=== PATIENT | female | born 1950 | race Caucasian/White ===

== ENCOUNTER 2017-02-26 21:15 | Inpatient (IN) | payer OTHER ==
[~2017-02-26] VITALS: Ht 165.1 cm; Wt 67.1 kg
[~2017-02-26 21:15] MED LIST: ADULT LOW DOSE81 MG PO; ALBUTEROL INHAL17 GM IH; ANTIVERT25 MG PO; APAP/CODEINE ELI5 M1 PO; APAP500 PO; ASA81BEC PO; ASPIRIN325 PO; CARVEDILOL3.125 MG PO; CHERACOL COUGH120 ML PO; COLACE100 MG PO; COREG CR20 MG PO; COREG PO; DICLOFENAC SOD50 M1 PO; DOXYCYCLINE 10100 MG PO; ERYTHROMYCIN E3.5 G1 OP; HYDROCODON-ACE1 EAC7 PO; HYDROCODONE-AP1 EAC6 PO; KEFLEX500 MG; KEFLEX500 MG PO; LANOXIN 0.120.125 M1 PG; LEVAQUIN 500 M500 M2 PO; LIPITOR20 MG PO; LISINOPRIL2.5 MG PO; MULTIVITAMINS PO; NORCO 5-325 TA1 EACH PO; NOVOLIN N100 UNIT/3 SUBQ; OMEPRAZOLE; ONDANSETRON HCL4 M2 PO; PROMETHAZINE-C120 ML PO; PROTONIX40 M2 PO; SILVADENE20 GM; SIMVASTATIN20 MG PO; SIMVASTATIN40 MG PO; ULTRAM 50MG TAB50 MG PO; VANCOMYCIN1 GM/150 M IV; ZANAFLEX4 M1 PO; ZOCOR PO; ZOFRAN ODT4 M1 PO; ZOFRAN ODT4 MG PO; ZOFRAN ODT4 MG SUBLING; ZOFRAN4 MG PO; ZOLOFT100 MG PO; ZPAK PO
[2017-02-26 21:16] VITALS: BP 178/91
[2017-02-26 21:29] LABS: ABSOLUTE NEUTROPHILS 4.4 thou/uL (1.4-8.2); EOSINOPHILS 4.9 % (0.0-3.0); HEMATOCRIT 34.8 % (37.0-47.0); HEMOGLOBIN 11.5 gm/dL (12.0-15.0); LYMPHOCYTES 28.5 % (24.0-44.0); MCH 29.6 pg (26.0-34.0); MCHC 33.1 g/dL (28.0-37.0); MCV 89.5 fL (80.0-100.0); MONOCYTES 8.5 % (1.0-8.0); PLATELET COUNT 338 thou/uL (150-400); POLYS 57.1 % (36.0-66.0); RBC 3.89 mil/uL (4.20-5.00); RDW 15.3 % (10.5-14.5); WBC 7.8 thou/uL (4.0-11.0)
[2017-02-26 21:30] LABS: MANUAL DIFF NO
[2017-02-26 21:37] LABS: ANION GAP 6 mmol/L (7-16); BUN 25 mg/dL (7-18); CHLORIDE 104 mmol/L (98-107); CO2 30 mmol/L (21-32); CREATININE 1.2 mg/dL (0.6-1.0); GLUCOSE 48 mg/dL (74-106); POTASSIUM 4.4 mmol/L (3.5-5.1); SODIUM 140 mmol/L (136-145)
[2017-02-26 21:41] LABS: ALKALINE PHOSPHATASE 73 U/L (46-116); DIRECT BILIRUBIN < 0.1 mg/dL (<0.1-0.3); SGOT 18 U/L (15-37); SGPT 18 U/L (30-65); TOTAL BILIRUBIN 0.2 mg/dL (<0.1-1.0); TOTAL PROTEIN 8.1 g/dL (6.4-8.2)
[2017-02-26] MEDS ORDERED: TRINATE TABLET1 TAB PO (21:43)
[2017-02-26 22:14] LABS: URINE BILIRUBIN NEGATIVE (Negative); URINE BLOOD TRACE (Negative); URINE COLOR YELLOW; URINE GLUCOSE-RANDOM* 2+ (Negative); URINE KETONES NEGATIVE (Negative); URINE NITRITE POSITIVE (Negative); URINE PROTEIN (DIPSTICK) 1+ (Negative); URINE UROBILINOGEN 0.2 E.U./dl (0.2-1.0)
[2017-02-26 22:21] LABS: SQUAMOUS 0-3 Few /LPF (0-3); URINE WBC >25 Many /HPF (0-5)
[2017-02-26 22:22] LABS: BACTERIA >30 Many /HPF (None Seen); CRYSTALS None Seen /LPF (None Seen); HYALINE CASTS 0-3 Few /LPF (None Seen); URINE RBC 0-2 Rare /HPF (0-2)
[2017-02-26 23:02] VITALS: BP 146/96
[2017-02-27 00:23] VITALS: BP 177/107
[2017-02-27 02:05] VITALS: BP 159/77
[2017-02-27 04:03] VITALS: BP 174/79
[2017-02-27 08:00] VITALS: BP 147/81
[2017-02-27 16:00] VITALS: BP 169/98
[2017-02-27 19:11] VITALS: BP 150/78
[2017-02-28 03:39] VITALS: BP 126/79
[2017-02-28] MEDS ORDERED: ADULT LOW DOSE81 MG PO (06:46)
[2017-02-28] MEDS ORDERED: HUMALOG100 UNIT/1 SUBQ (06:48)
[2017-02-28] MEDS ORDERED: CEFDINIR300 MG PO (06:51)
[2017-02-28 08:00] VITALS: BP 125/74
[2017-02-28 09:00] VITALS: BP 125/74
[2017-02-28 11:48] VITALS: BP 125/74
== END 2017-02-28 10:20 | disposition home or self-care (01) | DRG 690 ==
LOC: ER 21:15 → EROBS 22:20 → 3N 22:20
PROVIDERS: Emergency Medicine
DX: N39.0 Urinary tract infection, site not specified (principal); E78.00 Pure hypercholesterolemia, unspecified; I50.9 Heart failure, unspecified; I11.0 Hypertensive heart disease with heart failure; Z96.642 Presence of left artificial hip joint; E11.649 Type 2 diabetes mellitus with hypoglycemia without coma; K21.9 Gastro-esophageal reflux disease without esophagitis; F32.9 Major depressive disorder, single episode, unspecified; J45.909 Unspecified asthma, uncomplicated; Z88.0 Allergy status to penicillin; Z95.1 Presence of aortocoronary bypass graft; Z87.81 Personal history of (healed) traumatic fracture; I25.2 Old myocardial infarction; Z88.8 Allergy status to other drugs, medicaments and biological substances
CPT/HCPCS: 10096

== ENCOUNTER → 2017-04-28 | Outpatient (CLI) | payer OTHER ==
[~2017-04-28] MED LIST changes: +CEFDINIR300 MG PO; +HUMALOG100 UNIT/1 SUBQ; +TRINATE TABLET1 TAB PO
== END ==
LOC: HYPER 04-23 06:47
DX: E11.621 Type 2 diabetes mellitus with foot ulcer (principal); L97.521 Non-pressure chronic ulcer of other part of left foot limited to breakdown of skin; I25.810 Atherosclerosis of coronary artery bypass graft(s) without angina pectoris; I25.2 Old myocardial infarction; K21.9 Gastro-esophageal reflux disease without esophagitis; Z98.49 Cataract extraction status, unspecified eye

== ENCOUNTER → 2017-05-12 | Outpatient (CLI) | payer OTHER | LOC: HYPER 07:00 | DX: E11.621 Type 2 diabetes mellitus with foot ulcer (principal); L97.521 Non-pressure chronic ulcer of other part of left foot limited to breakdown of skin; I25.810 Atherosclerosis of coronary artery bypass graft(s) without angina pectoris; I25.2 Old myocardial infarction; K21.9 Gastro-esophageal reflux disease without esophagitis ==

== ENCOUNTER 2017-05-21 16:11 | Inpatient (IN) | payer OTHER ==
[~2017-05-21] VITALS: Ht 165.1 cm; Wt 59.0 kg
--- NOTE | ~2017-05-21 | EKG ---
[address] [address] ELECTROCARDIOGRAM REPORT Name: FERGUSONAFSHIN Room #: 404-P ADM IN M.R.#: [id number] Admission: 05/21/17 Attend Phys: Cameron Duncan MD Discharge: Date of : 46 Report #: [id number] THIS REPORT FOR: //name// [facility] ED Test Date: 2017-05-21 Test Time: 18:14:53 Pat Name: AFSHIN FERGUSON Department: Room: 404 Gender: F Senior Software Project Manager: [facility] : 1950 Requested By: Erika Broussard Order Number: [id number] MD: Kaiser Contreras Measurements Intervals [place] Rate: 79 P: 63 [place]: 211 QRS: 30 QRSD: 90 T: 88 QT: 405 QTc: 465 Interpretive Statements Sinus rhythm Low voltage, precordial leads Anteroseptal infarct, old Compared to ECG 01/12/2016 11:49:34 No significant changes Electronically Signed On 05-22-2017 7:40:57 CDT by Kaiser Contreras [email or web address] <ELECTRONICALLY SIGNED> By: Kaiser Contrreas MD, [facility] 05/22/17 0740 1814 181 Kaiser Contreras MD, [facility] /EPI
--- NOTE | ~2017-05-21 | O ---
[facility] [place] [address] OPERATIVE REPORT Name: AFSHIN FERGUSON ALEKSANDAR Room #: 404-P ADM IN M.R.#: [id number] Admission: 05/21/17 Attend Phys: Cameron Duncan MD Discharge: Date of : 48 Report #: [id number] THIS REPORT FOR: //name// CC: Cameron Duncan DATE OF SERVICE: 05/23/2017 PREOPERATIVE DIAGNOSIS: Displaced unstable right femoral neck fracture. POSTOPERATIVE DIAGNOSIS: Displaced unstable right femoral neck fracture. PROCEDURE: Repair of right femoral neck fracture with total hip arthroplasty replacement. SURGEON: Isaac Constantino MD INDICATIONS: This 66-year-old female fell injuring the right hip. X-rays confirmed a displaced unstable femoral neck fracture. She also has some preexisting degenerative arthritis. She already underwent a left total hip replacement. We discussed repair on the right side with either hemiarthroplasty or total hip replacement. Given her history and current findings, I think a total hip replacement is probably the best option for her. She and her family understand and agree. DESCRIPTION OF PROCEDURE: The patient was taken to the operating room where she was placed under general anesthesia. Prophylactic intravenous antibiotics were administered. She was turned to the left lateral decubitus position. The right hip, thigh and leg were meticulously prepped and draped. A slightly curving posterolateral skin incision was made centered over the greater trochanter. This was carried through subcutaneous tissues, fascia and gluteus to expose the posterior aspect of the hip joint. The short external rotators and capsule were taken down and preserved and tagged with several #1 Tevdek sutures. The hip was noted be fractured and unstable. A femoral neck osteotomy was performed. The femoral head was removed. The canal was opened with reamers and hand broaches. The [employer]hew size 10 press-fit stem seemed to fit quite nicely. Broaches were advanced to this level. Attention was then directed to the acetabulum. Good exposure was established. The acetabulum was sequentially reamed up to a size 46 mm reamer. This seemed to be tight and secure. A 46-mm metal acetabular shell was then inserted, placing this in alignment with her true acetabulum, which placed this in about 45 degrees off of vertical and about 20 degrees of anteversion. It was impacted into position and seated nicely, 1 cortical screw rather cancellous screw was placed through the apex of the shell engaging good periacetabular bone with solid additional fixation. A 28-mm polyethylene liner was then snapped into place with the 20-degree elevation at about the 10 o'clock posterior position. It seated nicely and appeared to be secure. A size 10 lateral offset femoral stem was then impacted into position, [address] [address] OPERATIVE REPORT Name: AFSHIN FERGUSON Room #: 404-P [facility] IN M.R.#: [id number] Admission: 05/21/17 Attend Phys: Cameron Duncan MD Discharge: Date of : 46 Report #: [id number] placing this in about 15 degrees of anteversion, it seated nicely and appeared to be secure. A trial reduction was performed and the hip was best suited for a +8 mm neck length. This resulted in satisfactory alignment, range of motion, stability and leg length. A 28-mm head with a +8 mm neck length was then applied. This was impacted onto the Osorio taper neck. The hip was once again reduced. Alignment, range of motion, stability and leg length were assessed and felt to be satisfactory. The short external rotators and capsule were then repaired back to greater trochanter using the #1 Tevdek sutures, passed through drill holes in the greater trochanter. A single Hemovac was left in the wound exiting through a separate stab incision. The fascia was closed with multiple #1 Vicryl sutures. The subcutaneous tissues were closed with 0 Monocryl. The skin was closed with skin paris. A sterile dressing was applied. The patient was awakened and returned to the recovery room in good condition. <ELECTRONICALLY SIGNED> By: Isaac Constantnio MD 05/26/17 1212 1618 1652 Isaac Constantino MD /nt
--- NOTE | ~2017-05-21 | HC ---
[facility] [place] [address] CONSULTATION Name: FERGUSONAFSHIN Room #: 404-P ADM IN M.R.#: [id number] Admission: 05/21/17 Attend Phys: Cameron Duncan MD Discharge: Date of : 48 Report #: [id number] THIS REPORT FOR: //name// CC: Cameron Duncan DATE OF SERVICE: 05/22/2017 CHIEF COMPLAINT: Right femoral neck fracture. HISTORY OF PRESENT ILLNESS: This frail but still active 66-year-old female presents with a new right hip injury. She fell resulting in a femoral neck fracture. She has no other apparent injuries. She did have a previous left hip fracture, which was treated with total hip replacement several years ago. She has done well on that side. She hopes for a similar procedure on the right. PHYSICAL EXAMINATION:: GENERAL: At the time of my evaluation, she is alert and oriented. MUSCULOSKELETAL: She complains of moderate hip discomfort with any movement, but seems reasonably comfortable when still and at rest. The right lower extremity reveals no obvious bruising or swelling about the hip, but there is tenderness to palpation. She has no significant shortening nor rotational abnormality. Distal neurologic and vascular status appeared to be intact. IMAGING DATA: X-rays of the pelvis show good position of her old total hip replacement on the left side, which appears to be stable and well seated. There now is a right femoral neck fracture with slight varus malalignment and angulation. There is moderate degenerative change at the hip as well. IMPRESSION: Right femoral neck fracture, which appears to be unstable. I have discussed this with the patient, reviewing treatment options. I think surgical repair is most appropriate, and she would like to press ahead whenever scheduling will allow. We discussed either hemiarthroplasty or total hip replacement. She had a similar discussion on the opposite side. She does have some hip arthritis and is otherwise fairly active and independent. Given this, I think a total hip replacement is probably the best approach for this patient. Pending scheduling, we may be able to proceed tomorrow with this surgical repair. <ELECTRONICALLY SIGNED> By: Isaac Constantino MD 05/22/17 1839 0750 0828 Isaac Constantino MD /nt
[2017-05-21 16:12] VITALS: BP 120/88
[2017-05-21 16:52] LABS: ABSOLUTE NEUTROPHILS 3.5 thou/uL (1.4-8.2); BASOPHILS 0.8 % (0.0-2.0); EOSINOPHILS 3.3 % (0.0-3.0); HEMATOCRIT 33.5 % (37.0-47.0); HEMOGLOBIN 11.1 gm/dL (12.0-15.0); LYMPHOCYTES 31.6 % (24.0-44.0); MCHC 33.2 g/dL (28.0-37.0); MCV 90.6 fL (80.0-100.0); MONOCYTES 7.7 % (1.0-8.0); PLATELET COUNT 237 thou/uL (150-400); POLYS 56.6 % (36.0-66.0); RDW 14.5 % (10.5-14.5); WBC 6.2 thou/uL (4.0-11.0)
[2017-05-21 16:53] LABS: MANUAL DIFF NO
[2017-05-21 16:58] LABS: CALCIUM 8.5 mg/dL (8.5-10.1)
[2017-05-21 17:04] LABS: ALBUMIN 3.5 g/dL (3.4-5.0); TOTAL BILIRUBIN 0.3 mg/dL (<0.1-1.0); TOTAL PROTEIN 7.2 g/dL (6.4-8.2)
[2017-05-21] MEDS ORDERED: NOVOLIN N100 UNIT/3 SUBQ (17:36)
[2017-05-21 17:56] VITALS: BP 189/91
[2017-05-21 18:21] VITALS: BP 172/76
[2017-05-21 23:17] VITALS: BP 139/57
[2017-05-22 03:21] VITALS: BP 140/76
[2017-05-22 08:07] VITALS: BP 125/67
[2017-05-22 10:43] VITALS: BP 137/66
[2017-05-22 20:00] VITALS: BP 135/72
[2017-05-23] VITALS (9 sets, daily range): BP systolic 113–157; BP diastolic 48–89
[2017-05-24 04:28] VITALS: BP 119/57
[2017-05-24 04:48] LABS: HEMATOCRIT 25.5 % (37.0-47.0); MCH 30.1 pg (26.0-34.0); MCHC 32.8 g/dL (28.0-37.0); MCV 91.9 fL (80.0-100.0); RBC 2.77 mil/uL (4.20-5.00); RDW 14.4 % (10.5-14.5); WBC 7.2 thou/uL (4.0-11.0)
[2017-05-24 04:50] LABS: HEMOGLOBIN 8.4 gm/dL (12.0-15.0)
[2017-05-24 07:59] VITALS: BP 140/67
[2017-05-24 16:29] VITALS: BP 98/49
[2017-05-24 20:00] VITALS: BP 110/61
[2017-05-25 03:38] LABS: HEMATOCRIT 23.8 % (37.0-47.0); HEMOGLOBIN 7.9 gm/dL (12.0-15.0); MCH 30.4 pg (26.0-34.0); MCHC 33.3 g/dL (28.0-37.0); MCV 91.5 fL (80.0-100.0); RBC 2.6 mil/uL (4.20-5.00); RDW 14.4 % (10.5-14.5); WBC 7.7 thou/uL (4.0-11.0)
[2017-05-25 04:00] VITALS: BP 151/77
[2017-05-25 08:00] VITALS: BP 156/73
[2017-05-25 20:59] VITALS: BP 103/48
[2017-05-26 04:46] VITALS: BP 150/76
[2017-05-26 06:05] LABS: HEMATOCRIT 25.2 % (37.0-47.0); HEMOGLOBIN 8.3 gm/dL (12.0-15.0); MCH 30.3 pg (26.0-34.0); MCHC 33.1 g/dL (28.0-37.0); MCV 91.5 fL (80.0-100.0); RBC 2.75 mil/uL (4.20-5.00); RDW 14.6 % (10.5-14.5)
[2017-05-26 08:48] VITALS: BP 154/66
[2017-05-26] MEDS ORDERED: PERCOCET 10-321 EACH PO (12:34)
[2017-05-26 13:27] VITALS: BP 154/66
== END 2017-05-26 17:06 | disposition home health service (06) | DRG 470 ==
LOC: ER 16:11 → EROBS 17:37 → 4N 17:37 → ENTRNSPT 05-26 14:27 → EDTRNSPTSTS 05-26 14:30 → 4N 05-26 17:06
PROVIDERS: Orthopaedic Surgery; Physician Assistant
PROC: 0SR904A Replacement of Right Hip Joint with Ceramic on Polyethylene Synthetic Substitute, Uncemented, Open Approach (ICD-10-PCS; principal; 2017-05-23)
DX: S72.001A Fracture of unspecified part of neck of right femur, initial encounter for closed fracture (principal); I42.9 Cardiomyopathy, unspecified; E78.00 Pure hypercholesterolemia, unspecified; E11.9 Type 2 diabetes mellitus without complications; I50.9 Heart failure, unspecified; J45.909 Unspecified asthma, uncomplicated; F32.9 Major depressive disorder, single episode, unspecified; K21.9 Gastro-esophageal reflux disease without esophagitis; W18.39XA Other fall on same level, initial encounter; I11.0 Hypertensive heart disease with heart failure; Z96.642 Presence of left artificial hip joint; I25.2 Old myocardial infarction; Z95.1 Presence of aortocoronary bypass graft; Z88.0 Allergy status to penicillin; Z88.8 Allergy status to other drugs, medicaments and biological substances; Z79.82 Long term (current) use of aspirin; Z79.4 Long term (current) use of insulin; Y93.89 Activity, other specified; Y92.89 Other specified places as the place of occurrence of the external cause; Y99.8 Other external cause status
CPT/HCPCS: 10790; 50010; 50101; 50382; 50414; 50455; 51412; 51771; 53000; 53367; 56521; 56525; 56527; 62110; 62900; 70005

== ENCOUNTER → 2017-06-03 | Outpatient (CLI) | payer OTHER ==
[~2017-06-03] MED LIST changes: +PERCOCET 10-321 EACH PO
== END ==
LOC: ULTRA 16:05
DX: M79.89 Other specified soft tissue disorders (principal)

== ENCOUNTER 2017-07-15 11:50 | Inpatient (IN) | payer OTHER ==
[~2017-07-15] VITALS: Ht 165.1 cm; Wt 64.1 kg
--- NOTE | ~2017-07-15 | HC ---
[facility] [place] [address] CONSULTATION Name: MARTYAFSHIN ANN Room #: 432-P [facility] IN M.R.#: [id number] Admission: 07/15/17 Attend Phys: Cameron Duncan MD Discharge: 07/18/17 Date of : 48 Report #: [id number] THIS REPORT FOR: //name// CC: Cameron Duncan DATE OF SERVICE: 07/16/2017 CHIEF COMPLAINT: Diabetic foot wound. HISTORY OF PRESENT ILLNESS: This is a 67-year-old female patient with a history of diabetes mellitus who was admitted to the hospital with difficulty swallowing and generalized weakness. She was also noted to have some drainage from an ulceration involving her left foot. I have been asked to see her with regard to wound care. The patient states that the area has opened up and is draining. She denies any pain. PAST MEDICAL HISTORY: Positive for diabetes mellitus, recent hip fracture, history of peripheral neuropathy, history of dysphagia, prior history of hypertension as well as previous myocardial infarction. ALLERGIES: To PENICILLIN, COMPAZINE, and TIZANIDINE. MEDICATIONS: Include simvastatin, insulin, prednisone, omeprazole, pantoprazole, sertraline, and carvedilol. SOCIAL HISTORY: Negative for alcohol or tobacco use. FAMILY HISTORY: Noncontributory. REVIEW OF SYSTEMS: CONSTITUTIONAL: The patient denies fever, chills, or weight loss. NEUROLOGIC: The patient denies focal weakness, numbness, or tingling. EYES: The patient denies visual change, redness or drainage. ENT: The patient denies earache, nasal drainage, or sore throat. CARDIOVASCULAR: The patient denies chest pain, palpitations, or diaphoresis. PULMONARY: The patient denies cough or shortness of breath. GASTROINTESTINAL: The patient does complain of difficulty and painful swallowing. Denies nausea, vomiting, diarrhea, or abdominal pain. ORTHOPEDIC: The patient does note the ulceration on her foot, diminished perception of light touch. Other systems and a 12-point review of systems are negative. PHYSICAL EXAMINATION: VITAL SIGNS: At this time include temperature 37.2, pulse 85, respiratory rate 16, and blood pressure 166/75. [address] [address] CONSULTATION Name: AFSHIN FERGUSON ALEKSANDAR Room #: 432-P [facility] IN M.R.#: [id number] Admission: 07/15/17 Attend Phys: Cameron Duncan MD Discharge: 07/18/17 Date of : 48 Report #: [id number] GENERAL: This is a chronically ill-appearing female, patient appears to be in no distress. HEAD: Normocephalic. NOSE AND THROAT: Clear. NECK: Supple. LUNGS: Clear. HEART: Regular rhythm. ABDOMEN: Soft. Bowel sounds present. EXTREMITIES: Examination of the lower extremities demonstrate easily palpable distal pulses including dorsalis pedis and posterior tibialis pulses. Examination of the feet demonstrates some callusing present. She has also an ulceration in the medial aspect of her left first MTP region on the plantar surface. There is some moderate erythema, this probes very close bone, although no bony structures were exposed to visual inspection. CLINICAL IMPRESSION: 1. 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 2. Diabetes mellitus. 3. Peripheral neuropathy. 4. Esophageal stricture, now status post dilation. RECOMMENDATIONS: We will check a sed rate, CRP as well as an MRI. Her x-ray of the foot demonstrates no evidence of acute abnormalities. Cultures are pending. She remains on intravenous vancomycin, which I think is appropriate. I appreciate being asked to see her in consultation. <ELECTRONICALLY SIGNED> By: Pepe Almazan MD 07/18/17 1526 1811 0915 Pepe Almazan MD /nt
--- NOTE | ~2017-07-15 | CNG ---
[facility] [place] [address] CYTO-NONGYN REPORT PROCEDURE Name: JENNIFER FERGUSON Room #: 432-P ADM IN M.R.#: [id number] Admission: 07/15/17 Date of : 46 Discharge: Report #: [id number] Path Case #: [id number] CYTOPATHOLOGY REPORT COLLECTION DATE: 07/16/2017 RECEIVED DATE: 07/16/2017 SUBMITTING PHYS: Dr. Cameron Duncan OTHER PHYS: Dr. Mirna Rodrigues CLINICAL HISTORY: Generalized weakness, anorexia, dysphagia, leukocytes; See also [id number]. SPECIMEN(S) RECEIVED: A.Esophageal brushing * * * * * * * * * * * * FINAL DIAGNOSIS: A. Esophageal brushing: - No malignant cells identified. Paucicellular specimen with a few squamous epithelial cells and fungal elements consistent with Ariadne species. PATHOLOGIST: Jony Walters M.D. REPORT ELECTRONICALLY SIGNED BY: Jony Walters M.D. DATE/TIME: 07/17/2017 11:23 * * * * * * * * * * * * GROSS PATHOLOGY: A. Esophageal brushing: The specimen is labeled "Jennifer Ferguson" and consists of a brush tip in fixative. One ThinPrep slide was prepared. (lg07.16.2017) MARINE DIESEL MECHANIC(S): Xochilt Cristina, JUANA(ASCP), IAC INITIAL CPT CODE(S): A; 49943 Professional services performed by [facility] at [facility] [address], [place] [address] Technical services performed by [facility] at [address] [place] [address]., [address], [place] [address]. [facility] [address] [place] [address], [address] [place], [place] [address] [place] [address] [place] [address] CYTO-NONGYN REPORT PROCEDURE Name: JENNIFER FERGUSON ALEKSANDAR Room #: 432-P ADM IN M.R.#: [id number] Admission: 07/15/17 Date of : 48 Discharge: Report #: [id number] Path Case #: [id number] PHONE: [phone] DIRECTOR: Robert Bustos M.D. * * * END OF REPORT * * *
--- NOTE | ~2017-07-15 | P ---
[facility] [place] [address] PROCEDURE REPORT Name: AFSHIN FERGUSON ALEKSANDAR Room #: 432-P ADM IN M.R.#: [id number] Admission: 07/15/17 Attend Phys: Cameron Duncan MD Discharge: Date of : 48 Report #: [id number] THIS REPORT FOR: //name// CC: Cameron Duncan MD DATE OF SERVICE: 07/16/2017 ESOPHAGOGASTRODUODENOSCOPY WITH BIOPSIES AND BRUSHINGS AND ESOPHAGEAL DILATATION Patient of Dr. Cameron Duncan. INDICATION FOR PROCEDURE: This patient has had dysphagia. She had significant weight loss in the last 2 months because of this dysphagia. The etiology is unclear. She also has some pain in her epigastrium that is not explained. Informed consent for this procedure was obtained prior to the administration of any medication. The risks of the procedure, which include bleeding, perforation, infection, complications of sedation and the possibility I could miss something have been explained to the patient. She has indicated her consent by signing. Propofol was slowly titrated before and during this procedure for patient comfort by the anesthesia service. The Efficient Cloudn upper videoscope was introduced through the upper esophageal sphincter and advanced under direct visualization to the descending duodenum. Findings are noted on withdrawal of the scope. Second portion of the duodenum and the duodenal bulb appear normal. Pylorus, normal mucosa. Antrum, erythematous mucosa suggesting a hemorrhagic gastritis. Biopsies were obtained x 2 for histopathology. Body, normal mucosa. Cardia and fundus, normal mucosa. Retroflex view did not reveal any abnormalities. The scope was withdrawn into the esophagus. Much of the esophagus both distally and proximally was coated with a white exudative material that is easily wiped off. I think this is retained food in the esophagus, possibly from an esophageal dysmotility problem. In some areas, it looks like Ariadne and so we did brush it for KEITH prep, but it is not an adherent plaque, it is a removable plaque. The esophageal mucosa that I visualized appeared normal. The scope was advanced down into the stomach again and a guidewire was advanced through the scope. Then, #48 and 51-Irish Savary dilators were passed over the guidewire without difficulty. The dilators and the guidewire were removed and the Efficient Cloudn upper videoscope was reintroduced through the upper esophageal sphincter and advanced under direct visualization again down into the body of the stomach. Retroflex view did not reveal any abnormalities of the cardia. The scope was withdrawn into the esophagus. The Z-line was appropriately located at the top of the gastric folds and it appears normal. The esophageal mucosa that is visualized appears normal; however, a large amount of retained white adherent, probably food is stuck to much of the esophageal wall. The scope was then withdrawn. [facility] [address] [place] [address] PROCEDURE REPORT Name: AFSHIN FERGUSON Room #: 432-P [facility] IN M.R.#: [id number] Admission: 07/15/17 Attend Phys: Cameron Duncan MD Discharge: Date of : 46 Report #: [id number] The patient went to the recovery area in stable condition. She tolerated the procedure well. IMPRESSION: 1. Probable retained food in the esophagus coating the becerra of the esophagus, KEITH prep obtained nonetheless, and no significant narrowing or stricturing of the esophagus seen. 2. Hemorrhagic gastritis of the antrum. 3. Successful passage of a #48 and 51 Irish Savary dilators over wire in an attempt to alleviate her dysphagia. My recommendations are as follows: Would resume her usual meds. We will await the KEITH prep brushing. We will await the biopsies. It is possible if her dysphagia persists after this dilatation, then she will need to have an esophageal motility study done as I suspect she probably has an esophageal dysmotility problem. Thank you very much once again for allowing me to participate in her care, Dr. Duncan. <ELECTRONICALLY SIGNED> By: Mirna Rodrigues DO 07/17/17 2309 1400 0714 Mirna Rodrigues DO /nt
--- NOTE | ~2017-07-15 | EKG ---
[address] [address] ELECTROCARDIOGRAM REPORT Name: AFSHIN FERGUSON Room #: 432-P ADM IN M.R.#: [id number] Admission: 07/15/17 Attend Phys: Cameron Duncan MD Discharge: Date of : 46 Report #: [id number] THIS REPORT FOR: //name// [facility] ED Test Date: 2017-07-15 Test Time: 12:44:48 Pat Name: AFSHIN FERGUSON Department: Room: [facility] Gender: F Contract Consultant: JACOBO : 1950 Requested By: Sera Pérez Order Number: [id number] MD: John Monaco Measurements Intervals [place] Rate: 85 P: 55 MS: 179 QRS: 22 QRSD: 88 T: 93 QT: 374 QTc: 445 Interpretive Statements Sinus rhythm Borderline low voltage, extremity leads Anteroseptal infarct, old Nonspecific T abnormalities, lateral leads Compared to ECG 06/07/2017 18:10:54 T-wave abnormality now present Myocardial infarct finding still present Electronically Signed On 07-15-2017 20:13:50 RETAIL PHARMACY MANAGER by John Monaco [email or web address] <ELECTRONICALLY SIGNED> By: John Monaco MD 07/15/172012 1244 1244 John Monaco MD /EPI
--- NOTE | ~2017-07-15 | S ---
[facility] [place] [address] SURGICAL PATH RPT PROCEDURE Name: FERGUSONJENNIFER Room #: 432-P ADM IN M.R.#: [id number] Admission: 07/15/17 Date of : 46 Discharge: Report #: [id number] Path Case #: [id number] PATHOLOGY REPORT COLLECTION DATE: 07/16/2017 RECEIVED DATE: 07/16/2017 SUBMITTING PHYS: Dr. Mirna Rodrigues OTHER PHYS: Dr. Cameron Duncan SPECIMEN(S) RECEIVED: A.Bx antrum R/O H. pylori * * * * * * * * * * * * FINAL DIAGNOSIS: Gastric mucosa, antrum, endoscopic biopsy: - Mild chronic gastritis. - Negative for intestinal metaplasia or atrophy. - Negative for Helicobacter pylori. COMMENT: Well controlled Helicobacter pylori immunohistochemical stain performed on block A1 - negative. (IUV:pit; 07/17/2017) PATHOLOGIST: Karma Lala M.D. REPORT ELECTRONICALLY SIGNED BY: Karma Lala M.D. DATE/TIME: 07/17/2017 15:15 * * * * * * * * * * * * GROSS PATHOLOGY: Received in formalin labeled "Jennifer FergusonANAHY antrum," is a segment of frazier soft tissue measuring 0.8 cm in maximum dimension. The specimen is submitted entirely in cassette A1. (TSD; 07/16/2017) CLINICAL HISTORY: Pre-OP DX: Dysphagia, weight loss Post-OP DX: Retained food m esophagus, hemorrhagic gastritis INITIAL CPT CODE(S): A; 86328, 68667 Professional services performed by [facility] at [facility] [address], [place] [address] [facility] [address] [place] [address] SURGICAL PATH RPT PROCEDURE Name: JENNIFER FERGUSON Room #: 432-P ADM IN M.R.#: [id number] Admission: 07/15/17 Date of : 46 Discharge: Report #: [id number] Path Case #: [id number] [facility] at [address] [place] [address], [facility] [address] [place] [address]. [facility] [address] [address] PHONE: [phone] DIRECTOR: Robert Bustos M.D. * * * END OF REPORT * * *
[~2017-07-15 11:50] MED LIST changes: +CARAFATE 1 GM TA1 G1 PO; +XARELTO10 MG PO
[2017-07-15 11:51] VITALS: BP 136/108
[2017-07-15 12:54] LABS: HEMATOCRIT 32.5 % (37.0-47.0); HEMOGLOBIN 10.4 gm/dL (12.0-15.0); MCH 29.8 pg (26.0-34.0); MCHC 32.1 g/dL (28.0-37.0); MCV 92.8 fL (80.0-100.0); PLATELET COUNT 313 thou/uL (150-400); RDW 15.5 % (10.5-14.5); WBC 15.6 thou/uL (4.0-11.0)
[2017-07-15 12:55] LABS: MANUAL DIFF YES
[2017-07-15 13:03] LABS: ANION GAP 6 mmol/L (7-16); BUN 37 mg/dL (7-18); CALCIUM 8.7 mg/dL (8.5-10.1); CHLORIDE 98 mmol/L (98-107); CO2 30 mmol/L (21-32); CREATININE 1.2 mg/dL (0.6-1.0); GLUCOSE 439 mg/dL (74-106); POTASSIUM 5.6 mmol/L (3.5-5.1); SODIUM 134 mmol/L (136-145)
[2017-07-15 13:12] LABS: ALKALINE PHOSPHATASE 98 U/L (46-116); SGOT 11 U/L (15-37); SGPT 13 U/L (30-65); TOTAL BILIRUBIN 0.3 mg/dL (<0.1-1.0); TOTAL PROTEIN 7.3 g/dL (6.4-8.2); TROPONIN-I < 0.04 ng/mL (<0.06)
[2017-07-15 13:29] LABS: ABSOLUTE NEUTROPHILS 15.1 thou/uL (1.4-8.2); PLATELET ESTIMATE NORMAL; TOTAL CELL COUNT 100
[2017-07-15] MEDS ORDERED: PREDNISONE 10 M10 MG PO (13:40)
[2017-07-15] MEDS ORDERED: PRILOSEC 20 MG20 MG PO (13:41)
[2017-07-15 14:09] LABS: URINE BILIRUBIN NEGATIVE (Negative); URINE BLOOD NEGATIVE (Negative); URINE COLOR YELLOW; URINE GLUCOSE-RANDOM* 3+ (Negative); URINE KETONES 1+ (Negative); URINE NITRITE NEGATIVE (Negative); URINE PROTEIN (DIPSTICK) NEGATIVE (Negative)
[2017-07-15 15:28] VITALS: BP 148/55
[2017-07-15 16:17] VITALS: BP 143/63
[2017-07-15 16:46] VITALS: BP 145/79
[2017-07-16 04:00] VITALS: BP 156/68
[2017-07-16 09:00] VITALS: BP 148/74
[2017-07-16 15:29] VITALS: BP 166/75
[2017-07-16 20:32] VITALS: BP 123/60
[2017-07-17 05:21] VITALS: BP 151/82
[2017-07-17 08:47] VITALS: BP 164/79
[2017-07-17 15:45] VITALS: BP 135/82
[2017-07-17 19:34] VITALS: BP 125/59
[2017-07-18 03:33] VITALS: BP 153/76
[2017-07-18 08:08] VITALS: BP 157/80
[2017-07-18 12:53] VITALS: BP 157/80
[2017-07-18] MEDS ORDERED: FLUCONAZOLE 10100 MG PO (13:07)
[2017-07-18] MEDS ORDERED: DOXYCYCLINE 10100 MG PO (13:10)
== END 2017-07-18 14:36 | disposition home health service (06) | DRG 368 ==
LOC: ER 11:50 → 4E 14:51 → EROBS 14:51 → 4E 15:59 → ENTRNSPT 07-18 14:19 → EDTRNSPTSTS 07-18 14:22 → 4E 07-18 14:36
PROVIDERS: Nurse Practitioner Family
PROC: 0D758ZZ Dilation of Esophagus, Via Natural or Artificial Opening Endoscopic (ICD-10-PCS; 2017-07-15)
PROC: 0DB54ZZ Excision of Esophagus, Percutaneous Endoscopic Approach (ICD-10-PCS; 2017-07-15)
PROC: 0DB78ZX Excision of Stomach, Pylorus, Via Natural or Artificial Opening Endoscopic, Diagnostic (ICD-10-PCS; principal; 2017-07-16)
DX: B37.81 Candidal esophagitis (principal); E43 Unspecified severe protein-calorie malnutrition; K29.71 Gastritis, unspecified, with bleeding; N17.9 Acute kidney failure, unspecified; I42.9 Cardiomyopathy, unspecified; E11.621 Type 2 diabetes mellitus with foot ulcer; I50.9 Heart failure, unspecified; J45.909 Unspecified asthma, uncomplicated; F32.9 Major depressive disorder, single episode, unspecified; K21.9 Gastro-esophageal reflux disease without esophagitis; Z96.642 Presence of left artificial hip joint; R13.19 Other dysphagia; E11.22 Type 2 diabetes mellitus with diabetic chronic kidney disease; D72.829 Elevated white blood cell count, unspecified; I12.9 Hypertensive chronic kidney disease with stage 1 through stage 4 chronic kidney disease, or unspecified chronic kidney disease; N18.9 Chronic kidney disease, unspecified; E78.00 Pure hypercholesterolemia, unspecified; E11.65 Type 2 diabetes mellitus with hyperglycemia; E87.5 Hyperkalemia; K22.2 Esophageal obstruction; E11.42 Type 2 diabetes mellitus with diabetic polyneuropathy; L97.529 Non-pressure chronic ulcer of other part of left foot with unspecified severity; D64.9 Anemia, unspecified; E78.5 Hyperlipidemia, unspecified; Z68.23 Body mass index [BMI] 23.0-23.9, adult; Z88.0 Allergy status to penicillin; Z88.8 Allergy status to other drugs, medicaments and biological substances; Z79.4 Long term (current) use of insulin; Z95.1 Presence of aortocoronary bypass graft; I25.2 Old myocardial infarction; Z90.49 Acquired absence of other specified parts of digestive tract
CPT/HCPCS: 10084; 62110; 62900

== ENCOUNTER → 2017-11-18 | Outpatient (CLI) | payer OTHER ==
[~2017-11-18] MED LIST changes: +FLUCONAZOLE 10100 MG PO; +PREDNISONE 10 M10 MG PO; +PRILOSEC 20 MG20 MG PO
== END ==
LOC: HYPER
DX: E11.621 Type 2 diabetes mellitus with foot ulcer (principal); L97.521 Non-pressure chronic ulcer of other part of left foot limited to breakdown of skin; I25.10 Atherosclerotic heart disease of native coronary artery without angina pectoris; I25.2 Old myocardial infarction; K21.9 Gastro-esophageal reflux disease without esophagitis; Z79.4 Long term (current) use of insulin

== ENCOUNTER → 2017-12-02 | Outpatient (CLI) | payer OTHER | LOC: HYPER 08:01 | DX: E11.621 Type 2 diabetes mellitus with foot ulcer (principal); L97.522 Non-pressure chronic ulcer of other part of left foot with fat layer exposed; L84 Corns and callosities; I25.2 Old myocardial infarction; K21.9 Gastro-esophageal reflux disease without esophagitis; Z79.4 Long term (current) use of insulin ==

== ENCOUNTER → 2017-12-09 | Outpatient (CLI) | payer OTHER | LOC: MRI 12-05 06:51 | DX: E11.621 Type 2 diabetes mellitus with foot ulcer (principal); B95.8 Unspecified staphylococcus as the cause of diseases classified elsewhere ==

== ENCOUNTER 2017-12-12 00:39 | Emergency (ER) | payer OTHER ==
[~2017-12-12] VITALS: Ht 165.1 cm; Wt 59.0 kg
--- NOTE | ~2017-12-12 | EKG ---
[address] [address] ELECTROCARDIOGRAM REPORT Name: MARTYAFSHIN ANN [id number] Admission: 12/12/17 Attend Phys: Discharge: 12/12/17 Date of : 46 Report #: [id number] THIS REPORT FOR: //name// [facility] ED Test Date: 2017-12-12 Test Time: 01:01:39 Pat Name: AFSHIN FERGUSON Department: Room: Gender: F Course Instructor: SHAINA : 1950 Requested By: Newton Tyler Order Number: [id number] MD: Kaiser Contreras Measurements Intervals [place] Rate: 88 P: 133 MT: 213 QRS: 127 QRSD: 101 T: 94 QT: 394 QTc: 477 Interpretive Statements Sinus rhythm Borderline prolonged MT interval Poor R wave progression Compared to ECG 07/15/2017 12:44:48 No significant change was found Electronically Signed On 12-12-2017 8:41:44 CDT by Kaiser Contreras [email or web address] <ELECTRONICALLY SIGNED> By: Kaisre Contreras MD, [facility] 12/12/17 0841 0 010 Kaiser Contreras MD, [facility] /EPI
[2017-12-12 00:54] LABS: HEMATOCRIT 30.4 % (37.0-47.0); HEMOGLOBIN 10.1 gm/dL (12.0-15.0); MCH 29.4 pg (26.0-34.0); MCHC 33.1 g/dL (28.0-37.0); MCV 88.8 fL (80.0-100.0); RBC 3.42 mil/uL (4.20-5.00); RDW 15.4 % (10.5-14.5); WBC 8.8 thou/uL (4.0-11.0)
[2017-12-12 01:03] LABS: ANION GAP 9 mmol/L (7-16); BUN 30 mg/dL (7-18); CALCIUM 8.6 mg/dL (8.5-10.1); CHLORIDE 103 mmol/L (98-107); CO2 27 mmol/L (21-32); CREATININE 1.2 mg/dL (0.6-1.0); GLUCOSE 357 mg/dL (74-106); POTASSIUM 4.5 mmol/L (3.5-5.1); SODIUM 139 mmol/L (136-145)
[2017-12-12 01:12] LABS: TROPONIN-I < 0.04 ng/mL (<0.06)
[2017-12-12] MEDS ORDERED: ZOFRAN ODT8 MG PO (01:50)
== END 2017-12-12 02:28 | disposition home or self-care (01) ==
LOC: ER 00:39
PROVIDERS: Emergency Medicine
DX: R11.2 Nausea with vomiting, unspecified (principal); T38.3X5A Adverse effect of insulin and oral hypoglycemic [antidiabetic] drugs, initial encounter; Y92.9 Unspecified place or not applicable; E11.65 Type 2 diabetes mellitus with hyperglycemia; E78.00 Pure hypercholesterolemia, unspecified; J45.909 Unspecified asthma, uncomplicated; K21.9 Gastro-esophageal reflux disease without esophagitis; F32.9 Major depressive disorder, single episode, unspecified; Z95.1 Presence of aortocoronary bypass graft; I10 Essential (primary) hypertension; I25.2 Old myocardial infarction

== ENCOUNTER → 2017-12-16 | Outpatient (CLI) | payer OTHER ==
[~2017-12-16] MED LIST changes: +ZOFRAN ODT8 MG PO
== END ==
LOC: HYPER 06:56
DX: E11.621 Type 2 diabetes mellitus with foot ulcer (principal); L97.522 Non-pressure chronic ulcer of other part of left foot with fat layer exposed; I25.2 Old myocardial infarction; L84 Corns and callosities; K21.9 Gastro-esophageal reflux disease without esophagitis; Z79.4 Long term (current) use of insulin

== ENCOUNTER → 2017-12-18 | Outpatient (CLI) | payer OTHER ==
[~2017-12-18] MED LIST changes: +MULTIVITAMINS1 EAC7 PO; +ROCEPHIN 11 GM/1001 IV; +VITAMINC500 PO; +[UNRECOGNIZED DRUG - SUPPLY] PO
--- NOTE | ~2017-12-18 | HC ---
[facility] [place] [address] CONSULTATION Name: AFSHIN FERGUSON ALEKSANDAR Room #: REG LEONARDO Boothe#: [id number] Admission: 12/18/17 Attend Phys: Juan Elaine Discharge: Date of : 46 Report #: [id number] THIS REPORT FOR: //name// CC: Newton Lobo MD DATE OF SERVICE: 12/18/2017 INFECTIOUS DISEASE CONSULTATION REASON FOR CONSULTATION: Osteomyelitis, left foot. HISTORY OF PRESENT ILLNESS: The patient is a 67-year-old white woman referred with history of chronic nonhealing ulcer, left foot and this was evaluated with repeat MRI of the foot on 12/09/2018, and at this particular time, the patient not only was found to have the chronic plantar soft tissue ulcer at the base of the great toe, but new marrow signal alteration within the first proximal phalanx, suggesting osteomyelitis as well as marrow alteration within the hallux sesamoid, which may be reactive or osteomyelitis as well. Cultures obtained by Dr. Anthony Lobo in the beginning of November revealed Staphylococcus aureus, oxacillin sensitive and group G streptococcus. The patient had visited with Dr. Lee recently and she had some debridement of the foot wound, which is said to be much blind cleaner. PAST MEDICAL HISTORY: Insulin-dependent diabetes mellitus; hyperlipidemia; cardiomyopathy with congestive heart failure; seasonal allergies; bronchial asthma; coronary artery bypass grafting in 2006 complicated by Staphylococcus aureus sternal wound infection, treated with parenteral vancomycin; gastroesophageal reflux; right ankle fracture, open reduction and internal fixation; bilateral hip fractures requiring surgery; ; essential tremors, on no antibiotic; full mouth dental extraction; hypertension; previous myocardial infarction; laparoscopic cholecystectomy. DRUG ALLERGIES: ALLERGIC TO PENICILLIN, PROCHLORPERAZINE, TIZANIDINE, AND TAPE. The patient relates she had tolerated amoxicillin, which she had taken before. MEDICATIONS: At present, the patient is on Cleocin 300 mg 3 times daily, which she had been taking since 11/24/2017. She is also on treatment with pantoprazole 40 mg daily, sertraline 100 mg daily, carvedilol 3.125 mg 2 times daily, simvastatin 20 mg daily, NPH insulin 15 units twice daily. She is on vitamin C 500 mg daily, multivitamins with vancomycin and the Cleocin to be stopped once the parenteral antibiotic is initiated. [address] [address] CONSULTATION Name: MARTYAFSHIN ALEKSANDAR Room #: REG CLI Shyann#: [id number] Admission: 12/18/17 Attend Phys: Juan Elaine Discharge: Date of : 46 Report #: [id number] SOCIAL HISTORY: See H and P and old records. FAMILY HISTORY: See H and P and old records. REVIEW OF SYSTEMS: Noncontributory. PHYSICAL EXAMINATION: GENERAL: This is a well-developed, nontoxic-looking woman. VITAL SIGNS: Temperature 98.3, pulse 73, BP 125/69, O2 saturation 97% on room air, weight 132.2 pounds. HEENMT: Status post right cataract surgery and dental plates upper and lower. NECK: Supple. BREASTS: Deferred. LUNGS: Clear. HEART: S1, S2. No murmurs or gallop. ABDOMEN: Soft, no masses or megaly. EXTREMITIES: The left foot has a small ulceration under the head of the first toe, clean for the most part, recently debrided. Dressings reapplied to foot. ASSESSMENT: 1. Osteomyelitis of the proximal phalanx of the left first toe and hallux sesamoid bone. 2. Diabetes mellitus. 3. Coronary artery bypass grafting, previous myocardial infarction. 4. HISTORY OF PENICILLIN ALLERGY AT YOUNG AGE AND HAS TOLERATED OTHER CILLINS WELL AMOXICILLIN IN THE PAST. SUGGESTIONS: Recommend parenteral antibiotic consisting of Rocephin 2 grams IV daily for 4-6 weeks. First dose to be given at [facility]. PICC to be inserted by either IV nurses at [place] or intervention radiologist at [place]. Weekly Mondays, CBC, ESR, CMP. Weekly Wednesdays, followup with senior's clinic. Dr. Anthony Lobo, thank you for requesting my suggestions in the care of your patient. <ELECTRONICALLY SIGNED> By: Juan Monaco MD 12/19/17 1134 1227 1839 Juan Monaco MD /nt
[2017-12-18 11:36] VITALS: BP 125/69
[2017-12-18 11:43] VITALS: BP 125/69
[2017-12-22 14:01] LABS: ABSOLUTE NEUTROPHILS 3.2 thou/uL (1.4-8.2); BASOPHILS 1.3 % (0.0-2.0); EOSINOPHILS 5.6 % (0.0-3.0); HEMATOCRIT 31.8 % (37.0-47.0); HEMOGLOBIN 10.5 gm/dL (12.0-15.0); LYMPHOCYTES 38.9 % (24.0-44.0); MCH 29.5 pg (26.0-34.0); MCHC 33.1 g/dL (28.0-37.0); MCV 89.1 fL (80.0-100.0); MONOCYTES 8.8 % (1.0-8.0); PLATELET COUNT 287 thou/uL (150-400); POLYS 45.4 % (36.0-66.0); RBC 3.57 mil/uL (4.20-5.00); RDW 15.1 % (10.5-14.5); WBC 7.2 thou/uL (4.0-11.0)
[2017-12-22 14:17] LABS: ALBUMIN 3.6 g/dL (3.4-5.0); CALCIUM 8.9 mg/dL (8.5-10.1); CREATININE 0.9 mg/dL (0.6-1.0); POTASSIUM 4.4 mmol/L (3.5-5.1); TOTAL BILIRUBIN 0.2 mg/dL (<0.1-1.0); TOTAL PROTEIN 7.6 g/dL (6.4-8.2)
== END ==
LOC: SEN 11:18
PROVIDERS: Internal Medicine Infectious Disease
DX: E11.9 Type 2 diabetes mellitus without complications (principal); M86.8X7 Other osteomyelitis, ankle and foot

== ENCOUNTER → 2017-12-24 | Outpatient (CLI) | payer OTHER ==
[2017-12-24 11:26] VITALS: BP 130/72
== END ==
LOC: SEN 09:00
DX: Z09 Encounter for follow-up examination after completed treatment for conditions other than malignant neoplasm (principal); I10 Essential (primary) hypertension; K21.9 Gastro-esophageal reflux disease without esophagitis; M86.8X7 Other osteomyelitis, ankle and foot; Z95.1 Presence of aortocoronary bypass graft

== ENCOUNTER → 2017-12-29 | Outpatient (CLI) | payer OTHER ==
[2017-12-29 12:12] LABS: ABSOLUTE NEUTROPHILS 2.4 thou/uL (1.4-8.2); HEMATOCRIT 30.5 % (37.0-47.0); HEMOGLOBIN 10.1 gm/dL (12.0-15.0); LYMPHOCYTES 40.9 % (24.0-44.0); MCH 29.9 pg (26.0-34.0); MCHC 33.3 g/dL (28.0-37.0); MCV 89.8 fL (80.0-100.0); MONOCYTES 9.7 % (1.0-8.0); PLATELET COUNT 227 thou/uL (150-400); POLYS 40.4 % (36.0-66.0); RBC 3.39 mil/uL (4.20-5.00)
[2017-12-29 12:36] LABS: ALBUMIN 3.4 g/dL (3.4-5.0); CALCIUM 8.3 mg/dL (8.5-10.1); CREATININE 1.1 mg/dL (0.6-1.0); POTASSIUM 4.8 mmol/L (3.5-5.1); TOTAL BILIRUBIN 0.2 mg/dL (<0.1-1.0); TOTAL PROTEIN 6.9 g/dL (6.4-8.2)
== END ==
LOC: OPONC 01:22
PROVIDERS: Internal Medicine Infectious Disease
DX: M86.8X7 Other osteomyelitis, ankle and foot (principal)

== ENCOUNTER → 2017-12-30 | Outpatient (CLI) | payer OTHER | LOC: HYPER 01:22 | DX: E11.621 Type 2 diabetes mellitus with foot ulcer (principal); L97.522 Non-pressure chronic ulcer of other part of left foot with fat layer exposed; I25.2 Old myocardial infarction; K21.9 Gastro-esophageal reflux disease without esophagitis; Z79.4 Long term (current) use of insulin ==

== ENCOUNTER → 2017-12-31 | Outpatient (CLI) | payer OTHER ==
[2017-12-31 11:30] VITALS: BP 110/59
== END ==
LOC: SEN 10:24
DX: M86.172 Other acute osteomyelitis, left ankle and foot (principal); E11.9 Type 2 diabetes mellitus without complications; K21.9 Gastro-esophageal reflux disease without esophagitis; G25.0 Essential tremor; D64.9 Anemia, unspecified; Z95.1 Presence of aortocoronary bypass graft

== ENCOUNTER → 2018-01-05 | Outpatient (CLI) | payer OTHER ==
[2018-01-05 12:34] LABS: ABSOLUTE NEUTROPHILS 2.3 thou/uL (1.4-8.2); BASOPHILS 1.4 % (0.0-2.0); EOSINOPHILS 10.5 % (0.0-3.0); HEMATOCRIT 30.5 % (37.0-47.0); HEMOGLOBIN 10.3 gm/dL (12.0-15.0); LYMPHOCYTES 38.9 % (24.0-44.0); MCH 30.1 pg (26.0-34.0); MCHC 33.6 g/dL (28.0-37.0); MCV 89.7 fL (80.0-100.0); MONOCYTES 7.9 % (1.0-8.0); PLATELET COUNT 239 thou/uL (150-400); POLYS 41.3 % (36.0-66.0); WBC 5.5 thou/uL (4.0-11.0)
[2018-01-05 12:46] LABS: ALBUMIN 3.4 g/dL (3.4-5.0); CALCIUM 8.8 mg/dL (8.5-10.1); CREATININE 0.9 mg/dL (0.6-1.0); POTASSIUM 4.3 mmol/L (3.5-5.1); TOTAL BILIRUBIN 0.2 mg/dL (<0.1-1.0); TOTAL PROTEIN 7.1 g/dL (6.4-8.2)
== END ==
LOC: OPONC 01:04
PROVIDERS: Internal Medicine Infectious Disease
DX: M86.8X7 Other osteomyelitis, ankle and foot (principal)

== ENCOUNTER → 2018-01-07 | Outpatient (CLI) | payer OTHER ==
[2018-01-07 11:55] VITALS: BP 137/72
== END ==
LOC: SEN 12-22 01:22
DX: I50.9 Heart failure, unspecified (principal); E11.9 Type 2 diabetes mellitus without complications; M86.8X7 Other osteomyelitis, ankle and foot

== ENCOUNTER → 2018-01-13 | Outpatient (CLI) | payer OTHER ==
[2018-01-13 11:42] LABS: ABSOLUTE NEUTROPHILS 2.4 thou/uL (1.4-8.2); EOSINOPHILS 10.8 % (0.0-3.0); HEMATOCRIT 32.8 % (37.0-47.0); HEMOGLOBIN 10.8 gm/dL (12.0-15.0); LYMPHOCYTES 39.9 % (24.0-44.0); MCH 29.7 pg (26.0-34.0); MONOCYTES 8.5 % (1.0-8.0); PLATELET COUNT 231 thou/uL (150-400); POLYS 39.8 % (36.0-66.0); RBC 3.64 mil/uL (4.20-5.00); RDW 14.6 % (10.5-14.5); WBC 6.1 thou/uL (4.0-11.0)
[2018-01-13 12:02] LABS: ALBUMIN 3.5 g/dL (3.4-5.0); CALCIUM 8.6 mg/dL (8.5-10.1); CREATININE 1.2 mg/dL (0.6-1.0); POTASSIUM 4.8 mmol/L (3.5-5.1); TOTAL BILIRUBIN 0.2 mg/dL (<0.1-1.0); TOTAL PROTEIN 7.3 g/dL (6.4-8.2)
== END ==
LOC: OPONC 00:27
PROVIDERS: Internal Medicine Infectious Disease
DX: M86.8X7 Other osteomyelitis, ankle and foot (principal)

== ENCOUNTER → 2018-01-14 | Outpatient (CLI) | payer OTHER | LOC: HYPER 07:03 | DX: E11.621 Type 2 diabetes mellitus with foot ulcer (principal); L97.522 Non-pressure chronic ulcer of other part of left foot with fat layer exposed; I25.2 Old myocardial infarction; K21.9 Gastro-esophageal reflux disease without esophagitis; Z98.49 Cataract extraction status, unspecified eye; Z79.4 Long term (current) use of insulin ==

== ENCOUNTER → 2018-01-19 | Outpatient (CLI) | payer OTHER ==
[2018-01-19 12:07] LABS: ABSOLUTE NEUTROPHILS 2.8 thou/uL (1.4-8.2); BASOPHILS 0.8 % (0.0-2.0); EOSINOPHILS 12.4 % (0.0-3.0); HEMATOCRIT 31.8 % (37.0-47.0); HEMOGLOBIN 10.5 gm/dL (12.0-15.0); LYMPHOCYTES 37.2 % (24.0-44.0); MCH 29.8 pg (26.0-34.0); MCV 90.2 fL (80.0-100.0); MONOCYTES 7.1 % (1.0-8.0); PLATELET COUNT 212 thou/uL (150-400); POLYS 42.5 % (36.0-66.0); RBC 3.52 mil/uL (4.20-5.00); RDW 14.6 % (10.5-14.5); WBC 6.5 thou/uL (4.0-11.0)
[2018-01-19 12:20] LABS: ALBUMIN 3.4 g/dL (3.4-5.0); CREATININE 1.1 mg/dL (0.6-1.0); POTASSIUM 4.6 mmol/L (3.5-5.1); TOTAL BILIRUBIN 0.2 mg/dL (<0.1-1.0)
== END ==
LOC: OPONC 01:36
PROVIDERS: Internal Medicine Infectious Disease
DX: M86.8X7 Other osteomyelitis, ankle and foot (principal)

== ENCOUNTER → 2018-01-21 | Outpatient (CLI) | payer OTHER ==
[2018-01-21 11:29] VITALS: BP 110/62
== END ==
LOC: SEN 01:36
DX: M86.172 Other acute osteomyelitis, left ankle and foot (principal); E11.69 Type 2 diabetes mellitus with other specified complication; I10 Essential (primary) hypertension

== ENCOUNTER → 2018-01-28 | Outpatient (CLI) | payer OTHER | LOC: HYPER 07:05 | DX: E11.621 Type 2 diabetes mellitus with foot ulcer (principal); L97.522 Non-pressure chronic ulcer of other part of left foot with fat layer exposed; L84 Corns and callosities; I25.2 Old myocardial infarction; K21.9 Gastro-esophageal reflux disease without esophagitis; Z98.49 Cataract extraction status, unspecified eye; Z79.4 Long term (current) use of insulin ==

== ENCOUNTER → 2018-01-28 | Outpatient (CLI) | payer OTHER | LOC: RAD 13:49 | DX: N63.20 Unspecified lump in the left breast, unspecified quadrant (principal); R92.8 Other abnormal and inconclusive findings on diagnostic imaging of breast ==

== ENCOUNTER → 2018-01-29 | Outpatient (CLI) | payer OTHER | LOC: ULTRA 12:58 | DX: N63.20 Unspecified lump in the left breast, unspecified quadrant (principal) ==

== ENCOUNTER → 2018-02-11 | Outpatient (CLI) | payer OTHER | LOC: HYPER 06:56 | DX: E11.621 Type 2 diabetes mellitus with foot ulcer (principal); L97.522 Non-pressure chronic ulcer of other part of left foot with fat layer exposed; L84 Corns and callosities; I25.2 Old myocardial infarction; K21.9 Gastro-esophageal reflux disease without esophagitis; Z98.49 Cataract extraction status, unspecified eye; Z79.4 Long term (current) use of insulin ==

== ENCOUNTER → 2018-02-25 | Outpatient (CLI) | payer OTHER | LOC: HYPER 06:54 | DX: E11.621 Type 2 diabetes mellitus with foot ulcer (principal); L97.522 Non-pressure chronic ulcer of other part of left foot with fat layer exposed; I25.2 Old myocardial infarction; K21.9 Gastro-esophageal reflux disease without esophagitis; Z79.4 Long term (current) use of insulin; Z98.49 Cataract extraction status, unspecified eye ==

== ENCOUNTER → 2018-02-27 | Outpatient (CLI) | payer OTHER | LOC: RAD 10:12 | DX: Z01.818 Encounter for other preprocedural examination (principal); M41.84 Other forms of scoliosis, thoracic region; L97.322 Non-pressure chronic ulcer of left ankle with fat layer exposed; Z99.81 Dependence on supplemental oxygen ==

== ENCOUNTER → 2018-03-03 | Outpatient (CLI) | payer OTHER ==
[~2018-03-03] MED LIST changes: +KEFLEX500 M1 PO
== END ==
LOC: HYPER 06:44
DX: E11.621 Type 2 diabetes mellitus with foot ulcer (principal); L97.522 Non-pressure chronic ulcer of other part of left foot with fat layer exposed; I25.2 Old myocardial infarction; K21.9 Gastro-esophageal reflux disease without esophagitis; Z79.4 Long term (current) use of insulin; Z98.49 Cataract extraction status, unspecified eye

== ENCOUNTER → 2018-03-04 | Outpatient (CLI) | payer OTHER | LOC: SEN 02-25 15:19 → HYPER 06:37 → SEN 10:55 → HYPER 11:35 | DX: E11.621 Type 2 diabetes mellitus with foot ulcer (principal); L97.522 Non-pressure chronic ulcer of other part of left foot with fat layer exposed; I25.2 Old myocardial infarction; K21.9 Gastro-esophageal reflux disease without esophagitis; Z98.49 Cataract extraction status, unspecified eye; Z79.4 Long term (current) use of insulin ==

== ENCOUNTER → 2018-03-04 | Outpatient (CLI) | payer OTHER ==
[2018-03-04 10:54] VITALS: BP 139/78
== END ==
LOC: SEN 08:11
DX: Z09 Encounter for follow-up examination after completed treatment for conditions other than malignant neoplasm (principal); M86.8X7 Other osteomyelitis, ankle and foot; L03.116 Cellulitis of left lower limb; E11.9 Type 2 diabetes mellitus without complications

== ENCOUNTER → 2018-03-05 | Outpatient (CLI) | payer OTHER | LOC: HYPER 06:47 | DX: E11.621 Type 2 diabetes mellitus with foot ulcer (principal); L97.522 Non-pressure chronic ulcer of other part of left foot with fat layer exposed; I25.2 Old myocardial infarction; K21.9 Gastro-esophageal reflux disease without esophagitis; Z98.49 Cataract extraction status, unspecified eye; Z79.4 Long term (current) use of insulin ==

== ENCOUNTER → 2018-03-06 | Outpatient (CLI) | payer OTHER | LOC: HYPER 06:44 | DX: E11.621 Type 2 diabetes mellitus with foot ulcer (principal); L97.522 Non-pressure chronic ulcer of other part of left foot with fat layer exposed; Z79.4 Long term (current) use of insulin; I25.2 Old myocardial infarction; K21.9 Gastro-esophageal reflux disease without esophagitis ==

== ENCOUNTER → 2018-03-10 | Outpatient (CLI) | payer OTHER | LOC: HYPER 06:29 | DX: E11.621 Type 2 diabetes mellitus with foot ulcer (principal); L97.522 Non-pressure chronic ulcer of other part of left foot with fat layer exposed; I25.2 Old myocardial infarction; K21.9 Gastro-esophageal reflux disease without esophagitis; Z98.49 Cataract extraction status, unspecified eye; Z79.4 Long term (current) use of insulin ==

== ENCOUNTER → 2018-03-12 | Outpatient (CLI) | payer OTHER | LOC: HYPER 06:31 | DX: E11.621 Type 2 diabetes mellitus with foot ulcer (principal); L97.522 Non-pressure chronic ulcer of other part of left foot with fat layer exposed; I25.2 Old myocardial infarction; K21.9 Gastro-esophageal reflux disease without esophagitis; Z79.4 Long term (current) use of insulin; Z98.49 Cataract extraction status, unspecified eye ==

== ENCOUNTER → 2018-03-17 | Outpatient (CLI) | payer OTHER | LOC: HYPER 06:59 | DX: E11.621 Type 2 diabetes mellitus with foot ulcer (principal); L97.522 Non-pressure chronic ulcer of other part of left foot with fat layer exposed; I25.2 Old myocardial infarction; K21.9 Gastro-esophageal reflux disease without esophagitis; Z79.4 Long term (current) use of insulin ==

== ENCOUNTER → 2018-03-18 | Outpatient (CLI) | payer OTHER | LOC: HYPER 06:42 | DX: E11.621 Type 2 diabetes mellitus with foot ulcer (principal); L97.522 Non-pressure chronic ulcer of other part of left foot with fat layer exposed; I25.2 Old myocardial infarction; K21.9 Gastro-esophageal reflux disease without esophagitis; Z98.49 Cataract extraction status, unspecified eye; Z79.4 Long term (current) use of insulin ==

== ENCOUNTER → 2018-03-20 | Outpatient (CLI) | payer OTHER | LOC: HYPER 08:01 | DX: E11.621 Type 2 diabetes mellitus with foot ulcer (principal); L97.522 Non-pressure chronic ulcer of other part of left foot with fat layer exposed; I25.2 Old myocardial infarction; K21.9 Gastro-esophageal reflux disease without esophagitis; Z98.49 Cataract extraction status, unspecified eye; Z79.4 Long term (current) use of insulin ==

== ENCOUNTER → 2018-03-26 | Outpatient (CLI) | payer OTHER | LOC: HYPER 03-24 06:31 | DX: E11.621 Type 2 diabetes mellitus with foot ulcer (principal); L97.522 Non-pressure chronic ulcer of other part of left foot with fat layer exposed; I25.2 Old myocardial infarction; K21.9 Gastro-esophageal reflux disease without esophagitis; Z79.4 Long term (current) use of insulin; Z98.49 Cataract extraction status, unspecified eye ==

== ENCOUNTER → 2018-04-01 | Outpatient (CLI) | payer OTHER | LOC: HYPER 06:58 | DX: E11.622 Type 2 diabetes mellitus with other skin ulcer (principal); L97.522 Non-pressure chronic ulcer of other part of left foot with fat layer exposed; L84 Corns and callosities; I25.2 Old myocardial infarction; K21.9 Gastro-esophageal reflux disease without esophagitis; Z98.49 Cataract extraction status, unspecified eye; Z79.4 Long term (current) use of insulin ==

== ENCOUNTER → 2018-04-03 | Outpatient (CLI) | payer OTHER | LOC: HYPER 08:04 | DX: E11.621 Type 2 diabetes mellitus with foot ulcer (principal); L97.522 Non-pressure chronic ulcer of other part of left foot with fat layer exposed; I25.2 Old myocardial infarction; K21.9 Gastro-esophageal reflux disease without esophagitis; Z79.4 Long term (current) use of insulin ==

== ENCOUNTER → 2018-04-06 | Outpatient (CLI) | payer OTHER | LOC: HYPER 07:00 | DX: E11.621 Type 2 diabetes mellitus with foot ulcer (principal); L97.522 Non-pressure chronic ulcer of other part of left foot with fat layer exposed; I25.2 Old myocardial infarction; K21.9 Gastro-esophageal reflux disease without esophagitis; Z79.4 Long term (current) use of insulin ==

== ENCOUNTER → 2018-04-07 | Outpatient (CLI) | payer OTHER | LOC: HYPER 06:53 | DX: E11.621 Type 2 diabetes mellitus with foot ulcer (principal); L97.522 Non-pressure chronic ulcer of other part of left foot with fat layer exposed; I25.2 Old myocardial infarction; K21.9 Gastro-esophageal reflux disease without esophagitis; Z79.4 Long term (current) use of insulin ==

== ENCOUNTER → 2018-04-08 | Outpatient (CLI) | payer OTHER | LOC: HYPER 06:50 | DX: E11.621 Type 2 diabetes mellitus with foot ulcer (principal); L97.522 Non-pressure chronic ulcer of other part of left foot with fat layer exposed; L84 Corns and callosities; I25.2 Old myocardial infarction; K21.9 Gastro-esophageal reflux disease without esophagitis; Z79.4 Long term (current) use of insulin ==

== ENCOUNTER → 2018-04-09 | Outpatient (CLI) | payer OTHER | LOC: HYPER 06:55 | DX: E11.621 Type 2 diabetes mellitus with foot ulcer (principal); L97.522 Non-pressure chronic ulcer of other part of left foot with fat layer exposed; I25.2 Old myocardial infarction; K21.9 Gastro-esophageal reflux disease without esophagitis; Z79.4 Long term (current) use of insulin ==

== ENCOUNTER → 2018-05-11 | Outpatient (CLI) | payer OTHER | LOC: HYPER 07:09 | DX: E11.621 Type 2 diabetes mellitus with foot ulcer (principal); L97.522 Non-pressure chronic ulcer of other part of left foot with fat layer exposed; I25.2 Old myocardial infarction; K21.9 Gastro-esophageal reflux disease without esophagitis; Z79.4 Long term (current) use of insulin ==

== ENCOUNTER → 2018-05-12 | Outpatient (CLI) | payer OTHER | LOC: HYPER 06:50 | DX: E11.621 Type 2 diabetes mellitus with foot ulcer (principal); L97.522 Non-pressure chronic ulcer of other part of left foot with fat layer exposed; I25.2 Old myocardial infarction; K21.9 Gastro-esophageal reflux disease without esophagitis; Z79.4 Long term (current) use of insulin ==

== ENCOUNTER → 2018-05-13 | Outpatient (CLI) | payer OTHER | LOC: HYPER 07:00 | DX: E11.621 Type 2 diabetes mellitus with foot ulcer (principal); L97.522 Non-pressure chronic ulcer of other part of left foot with fat layer exposed; I25.2 Old myocardial infarction; K21.9 Gastro-esophageal reflux disease without esophagitis; Z79.4 Long term (current) use of insulin ==

== ENCOUNTER → 2018-05-19 | Outpatient (CLI) | payer OTHER | LOC: HYPER 07:00 | DX: E11.621 Type 2 diabetes mellitus with foot ulcer (principal); L97.522 Non-pressure chronic ulcer of other part of left foot with fat layer exposed; I25.2 Old myocardial infarction; K21.9 Gastro-esophageal reflux disease without esophagitis; Z79.4 Long term (current) use of insulin ==

== ENCOUNTER → 2018-05-20 | Outpatient (CLI) | payer OTHER | LOC: HYPER 07:09 | DX: E11.621 Type 2 diabetes mellitus with foot ulcer (principal); L97.522 Non-pressure chronic ulcer of other part of left foot with fat layer exposed; I25.2 Old myocardial infarction; K21.9 Gastro-esophageal reflux disease without esophagitis; Z79.4 Long term (current) use of insulin ==

== ENCOUNTER → 2018-05-21 | Outpatient (CLI) | payer OTHER | LOC: HYPER 06:45 | DX: E11.621 Type 2 diabetes mellitus with foot ulcer (principal); L97.522 Non-pressure chronic ulcer of other part of left foot with fat layer exposed; K21.9 Gastro-esophageal reflux disease without esophagitis; I25.2 Old myocardial infarction; Z79.4 Long term (current) use of insulin ==

== ENCOUNTER → 2018-05-22 | Outpatient (CLI) | payer OTHER | LOC: HYPER 07:54 | DX: E11.621 Type 2 diabetes mellitus with foot ulcer (principal); L97.522 Non-pressure chronic ulcer of other part of left foot with fat layer exposed; I25.2 Old myocardial infarction; K21.9 Gastro-esophageal reflux disease without esophagitis; Z79.4 Long term (current) use of insulin ==

== ENCOUNTER → 2018-05-25 | Outpatient (CLI) | payer OTHER | LOC: HYPER 06:55 | DX: E11.621 Type 2 diabetes mellitus with foot ulcer (principal); L97.522 Non-pressure chronic ulcer of other part of left foot with fat layer exposed; I25.2 Old myocardial infarction; K21.9 Gastro-esophageal reflux disease without esophagitis; Z79.4 Long term (current) use of insulin ==

== ENCOUNTER → 2018-05-26 | Outpatient (CLI) | payer OTHER | LOC: HYPER 06:52 | DX: E11.621 Type 2 diabetes mellitus with foot ulcer (principal); L97.522 Non-pressure chronic ulcer of other part of left foot with fat layer exposed; I25.2 Old myocardial infarction; K21.9 Gastro-esophageal reflux disease without esophagitis; Z79.4 Long term (current) use of insulin ==

== ENCOUNTER → 2018-05-27 | Outpatient (CLI) | payer OTHER | LOC: HYPER 06:17 | DX: E11.621 Type 2 diabetes mellitus with foot ulcer (principal); L97.522 Non-pressure chronic ulcer of other part of left foot with fat layer exposed; I25.2 Old myocardial infarction; K21.9 Gastro-esophageal reflux disease without esophagitis; Z79.4 Long term (current) use of insulin ==

== ENCOUNTER → 2018-05-28 | Outpatient (CLI) | payer OTHER | LOC: HYPER 06:56 | DX: E11.621 Type 2 diabetes mellitus with foot ulcer (principal); L97.522 Non-pressure chronic ulcer of other part of left foot with fat layer exposed; I25.2 Old myocardial infarction; K21.9 Gastro-esophageal reflux disease without esophagitis; Z79.4 Long term (current) use of insulin ==

== ENCOUNTER → 2018-06-03 | Outpatient (CLI) | payer OTHER | LOC: HYPER 06-02 12:51 | DX: E11.621 Type 2 diabetes mellitus with foot ulcer (principal); L97.522 Non-pressure chronic ulcer of other part of left foot with fat layer exposed; L84 Corns and callosities; I25.2 Old myocardial infarction; K21.9 Gastro-esophageal reflux disease without esophagitis; Z79.4 Long term (current) use of insulin ==

== ENCOUNTER → 2018-06-09 | Outpatient (CLI) | payer OTHER | LOC: HYPER 05-18 07:05 | DX: E11.621 Type 2 diabetes mellitus with foot ulcer (principal); L97.522 Non-pressure chronic ulcer of other part of left foot with fat layer exposed; L84 Corns and callosities; I25.2 Old myocardial infarction; K21.9 Gastro-esophageal reflux disease without esophagitis; Z79.4 Long term (current) use of insulin ==

== ENCOUNTER → 2018-06-16 | Outpatient (CLI) | payer OTHER ==
[~2018-06-16] MED LIST changes: +ASPIR 8181 MG PO; +NOVOLOG100 UNIT/1 SUBQ; +TRAMADOL 50 MG50 MG PO; +ZINC30 M1 PO
== END ==
LOC: HYPER 06:49
DX: E11.621 Type 2 diabetes mellitus with foot ulcer (principal); L97.522 Non-pressure chronic ulcer of other part of left foot with fat layer exposed; L84 Corns and callosities; I25.2 Old myocardial infarction; K21.9 Gastro-esophageal reflux disease without esophagitis; Z79.4 Long term (current) use of insulin

== ENCOUNTER 2018-06-23 05:35 | Day surgery (SDC) | payer OTHER ==
[~2018-06-23] VITALS: Ht 165.1 cm; Wt 59.9 kg
--- NOTE | ~2018-06-23 | PATH ---
[facility] [address] [place] [address] PATHOLOGY RPT PROCEDURE Name: COLIN FERGUSONKAREN HUERTAS Room #: DEP [facility] M.R.#: [id number] Admission: 06/23/18 Date of : 46 Discharge: 06/23/18 Report #: [id number] Path Case #: [id number] L[facility] Accession Number: [id number] . 01 Material submitted: . LEFT PROXIMAL HALLUX . 01 Clinical history: . Non-chronic pressure ulcer left foot . 02 Diagnosis: Left proximal hallux, amputation: - Bone and soft tissue revealing chronic inflammation, fibrosis and chronic osteomyelitis. - The inked surgical resection margins of the bone appear viable without inflammation. . (SHA:bob; 06/25/2018) MBJessica/06/25/2018 . 02 Electronically signed: . Tavo Kennedy MD, Pathologist NPI- [id number] . 01 Gross description: . Received in formalin labeled "Jennifer Ferguson, left proximal hallux," are five irregular fragments of granular, yellow-frazier bone admixed with pale lu-frazier soft tissue ranging from 0.9 x 0.7 x 0.6 cm to 2.3 x 1.8 x 1.3 cm in greatest dimensions. The largest segment displays a smooth, concave articular surface with a partially flat/partially jagged opposite bone margin (inked black). The largest segment is submitted representatively in cassette A1 following decalcification, and the remaining segments are submitted representatively in cassette A2 following decalcification. (DAC; 06/24/2018) XDC/XDC . 02 Pathologist provided ICD-10: M86.672 . 02 CPT . 809030, 635951 Specimen Comment: A courtesy copy of this report has been sent to Specimen Comment: [phone], . Specimen Comment: Report sent to / DR MASON Performed at: [address] [place] [address] PATHOLOGY RPT PROCEDURE Name: JENNIFER FERGUSON ALEKSANDAR Room #: DEP [facility] Shyann#: [id number] Admission: 06/23/18 Date of : 46 Discharge: 06/23/18 Report #: [id number] Path Case #: [id number] [address] [facility] [address] [id number] MD Guy Mora MD Phone: [phone] Performed at: [address] [id number] MD Karma Lala MD Phone: [phone]
[2018-06-23 12:38] LABS: HEMATOCRIT 33.2 % (37.0-47.0); HEMOGLOBIN 11.2 gm/dL (12.0-15.0); MCH 30.6 pg (26.0-34.0); MCHC 33.7 g/dL (28.0-37.0); MCV 90.7 fL (80.0-100.0); RBC 3.66 mil/uL (4.20-5.00); RDW 13.8 % (10.5-14.5); WBC 6.6 thou/uL (4.0-11.0)
[2018-06-23 12:47] LABS: CALCIUM 9.2 mg/dL (8.5-10.1); CREATININE 1.1 mg/dL (0.6-1.0); POTASSIUM 4.7 mmol/L (3.5-5.1)
[2018-06-23 14:42] VITALS: BP 188/66
== END 2018-06-23 16:00 | disposition home or self-care (01) ==
LOC: TBA 05:35 → OR 05:35
PROVIDERS: Podiatrist Foot & Ankle Surgery
DX: M86.672 Other chronic osteomyelitis, left ankle and foot (principal); L97.522 Non-pressure chronic ulcer of other part of left foot with fat layer exposed; M20.12 Hallux valgus (acquired), left foot; M13.872 Other specified arthritis, left ankle and foot; E11.621 Type 2 diabetes mellitus with foot ulcer; E11.40 Type 2 diabetes mellitus with diabetic neuropathy, unspecified; I25.2 Old myocardial infarction; I50.9 Heart failure, unspecified; K21.9 Gastro-esophageal reflux disease without esophagitis; I42.9 Cardiomyopathy, unspecified; E78.00 Pure hypercholesterolemia, unspecified; J45.909 Unspecified asthma, uncomplicated; Z98.890 Other specified postprocedural states; Z95.1 Presence of aortocoronary bypass graft; Z79.4 Long term (current) use of insulin; Z90.49 Acquired absence of other specified parts of digestive tract; Z96.643 Presence of artificial hip joint, bilateral; Z88.0 Allergy status to penicillin; Z88.8 Allergy status to other drugs, medicaments and biological substances; Z79.82 Long term (current) use of aspirin; Z79.899 Other long term (current) drug therapy
CPT/HCPCS: 50010; 50101; 50386; 50951; 56525; 56526; 57091; 57178; 62110; 62850; 70005

== ENCOUNTER → 2018-07-06 | Outpatient (CLI) | payer OTHER | LOC: HYPER 07-03 10:29 | DX: T81.89XA Other complications of procedures, not elsewhere classified, initial encounter (principal); E11.621 Type 2 diabetes mellitus with foot ulcer; L97.521 Non-pressure chronic ulcer of other part of left foot limited to breakdown of skin; L84 Corns and callosities; I25.2 Old myocardial infarction; K21.9 Gastro-esophageal reflux disease without esophagitis; Z79.4 Long term (current) use of insulin; Y92.89 Other specified places as the place of occurrence of the external cause; Y83.8 Other surgical procedures as the cause of abnormal reaction of the patient, or of later complication, without mention of misadventure at the time of the procedure ==

== ENCOUNTER 2018-09-21 09:56 | Inpatient (IN) | payer OTHER ==
[~2018-09-21] VITALS: Ht 165.1 cm; Wt 62.1 kg
[2018-09-21 09:57] VITALS: BP 165/86
[2018-09-21 10:29] LABS: ABSOLUTE NEUTROPHILS 3.4 thou/uL (1.4-8.2); BASOPHILS 0.8 % (0.0-2.0); EOSINOPHILS 9.2 % (0.0-3.0); HEMATOCRIT 33.6 % (37.0-47.0); MCH 30.1 pg (26.0-34.0); MCHC 32.8 g/dL (28.0-37.0); MCV 91.6 fL (80.0-100.0); MONOCYTES 8.9 % (1.0-8.0); PLATELET COUNT 275 thou/uL (150-400); POLYS 52.1 % (36.0-66.0); RBC 3.67 mil/uL (4.20-5.00); RDW 14.3 % (10.5-14.5); WBC 6.5 thou/uL (4.0-11.0)
[2018-09-21 10:30] LABS: ANION GAP 6 mmol/L (7-16); BUN 25 mg/dL (7-18); CALCIUM 8.6 mg/dL (8.5-10.1); CHLORIDE 106 mmol/L (98-107); CO2 29 mmol/L (21-32); GLUCOSE 128 mg/dL (74-106); POTASSIUM 4.1 mmol/L (3.5-5.1); SODIUM 141 mmol/L (136-145)
[2018-09-21 10:39] LABS: TROPONIN-I <0.06 ng/mL (<0.06)
[2018-09-21 11:26] VITALS: BP 165/81
[2018-09-21 12:45] VITALS: BP 179/93
--- NOTE | 2018-09-21 13:26 | 2DMMODE ---
[address] [place] [address] 2 D/M-MODE ECHOCARDIOGRAM Name: MARTYAFSHIN ANN Room #: 463-P ADM IN M.R.#: [id number] Admission: 09/21/18 Attend Phys: Cameron Duncan, Discharge: Date of : 46 Date of Service: 09/21/18 1326 Report #: [id number] THIS REPORT FOR: //name// APPROVED REPORT Study performed: 09/21/2018 12:43:06 EXAM: Comprehensive 2D, Doppler, and color-flow Echocardiogram Patient Location: ER Status: routine BSA: 1.68 HR: 74 bpm BP: 165/81 mmHg Rhythm: NSR Other Information Study Quality: Adequate Indications Chest Pain Hx: CHF, CO, CABG, HLD 2D Dimensions RVDd: 29.36 mm IVSd: 11.77 (7-11mm) LVOT Diam: 19.75 (18-24mm) LVDd: 38.50 mm PWd: 6.65 (7-11mm) Ascending Ao: 28.93 (22-36mm) LVDs: 26.11 (25-40mm) Aortic Root: 31.51 mm Volumes Left Atrial Volume (Systole) Single Plane 4CH: 33.12 mL Single Plane 2CH: 36.40 mL LA ESV Index: 22.00 mL/m2 Aortic Valve AoV Peak Chapin.: 1.03 m/s AO Peak Gr.: 4.20 mmHg LVOT Max P.01 mmHg LVOT Max V: 0.87 m/s ALTAGRACIA Vmax: 2.59 cm2 Mitral Valve E/A Ratio: 0.9 MV Decel. Time: 188.96 ms MV E Max Chapin.: 1.21 m/[place] [address] 2 D/M-MODE ECHOCARDIOGRAM Name: AFSHIN FERGUSON [facility] Room #: 463-P [facility] IN .R.#: [id number] Admission: 09/21/18 Attend Phys: Cameron Duncan, Discharge: Date of : 46 Date of Service: 09/21/18 1326 Report #: [id number] A Chapin.: 1.38 m/s MV PHT: 54.80 ms IVRT: 64.59 ms Pulmonary Valve PV Peak Chapin.: 1.06 m/s PV Peak Gr.: 4.47 mmHg Pulmonary Vein P Vein S: 0.47 m/s P Vein D: 0.48 m/s P Vein S/D Ratio: 0.98 Tricuspid Valve TR Peak Chapin.: 3.05 m/s RAP Estimate: 5.00 mmHg TR Peak Gr.: 37.21 mmHg PA Pressure: 42.00 mmHg Left Ventricle The left ventricle is normal size. Mild basal septal hypertrophy is present. Left ventricular systolic function is normal. LVEF is 50-55%. Mild diastolic dysfunction is present (impaired relaxation pattern). Right Ventricle The right ventricle is normal size. The right ventricular systolic function is normal. Atria The left atrium size is normal. The right atrium size is normal. Aortic Valve The aortic valve is normal in structure. No aortic regurgitation is present. There is no aortic valvular stenosis. Mitral Valve Mitral valve leaflets are thickened. Moderate mitral annular calcification. Mild to moderate mitral regurgitation. No evidence of mitral valve stenosis. Tricuspid Valve The tricuspid valve is normal in structure. Mild to moderate tricuspid regurgitation. Estimated PAP is 40-45mmHg. [address] [place] [address] 2 D/M-MODE ECHOCARDIOGRAM Name: AFSHIN FERGUSON [facility] Room #: 463-P [facility] IN M.R.#: [id number] Admission: 09/21/18 Attend Phys: Cameron Duncan, Discharge: Date of : 46 Date of Service: 09/21/18 1326 Report #: [id number] Pulmonic Valve The pulmonary valve is normal in structure. Trace pulmonic regurgitation. Great Vessels The aortic root is normal in size. The ascending aorta is normal in size. IVC is normal in size and collapses >50% with inspiration. Pericardium There is no pericardial effusion. <Conclusion> The left ventricle is normal size. Mild basal septal hypertrophy is present. Left ventricular systolic function is normal. Mild diastolic dysfunction is present (impaired relaxation pattern). The right ventricle is normal size. The left atrium size is normal. The aortic valve is normal in structure. Mitral valve leaflets are thickened. Moderate mitral annular calcification. Mild to moderate mitral regurgitation. Mild to moderate tricuspid regurgitation. Estimated PAP is 40-45mmHg. <ELECTRONICALLY SIGNED> By: Tylor Smiley MD 09/21/18 1326 1326 1326 Tylor Smiley MD /INF
[2018-09-21 13:56] VITALS: BP 170/83
--- NOTE | 2018-09-21 17:33 | NUR ---
PT ARRIVED ON UNIT FROM ED. NO ISSUES OR CONCERNS. WILL CONTINUE TO MONTIOR WAITING ON DR MASON FOR ORDERS
[2018-09-21 19:34] VITALS: BP 176/96
--- NOTE | 2018-09-21 20:48 | NUR ---
Pt refused Humalog subq per sliding scale tonight (blood sugar 388). NPH subq given tonight.
--- NOTE | 2018-09-21 22:41 | NUR ---
Offered to pt to call Dr. Duncan for home meds. Pt stated "No, don't call him (Dr. Duncan) now... he's probably in sleep. I can wait until tomorrow." Pt was instructed to keep NPO after midnight. Pt A/O x 4, on RA, calm and cooperative. SR on monitor. Denies pain or any other discomfort. Fall precautions maintained. Call light within reach. Will continue to monitor.
[2018-09-22] VITALS (22 sets, daily range): BP systolic 75–164; BP diastolic 40–85
[2018-09-22 05:28] LABS: ABSOLUTE NEUTROPHILS 2.3 thou/uL (1.4-8.2); EOSINOPHILS 8.7 % (0.0-3.0); HEMATOCRIT 32.5 % (37.0-47.0); HEMOGLOBIN 11.1 gm/dL (12.0-15.0); MCH 30.6 pg (26.0-34.0); MCHC 34.1 g/dL (28.0-37.0); MCV 89.7 fL (80.0-100.0); MONOCYTES 8.4 % (1.0-8.0); PLATELET COUNT 262 thou/uL (150-400); POLYS 39.9 % (36.0-66.0); RBC 3.63 mil/uL (4.20-5.00); RDW 14.3 % (10.5-14.5); WBC 5.9 thou/uL (4.0-11.0)
[2018-09-22 05:48] LABS: ANION GAP 6 mmol/L (7-16); BUN 24 mg/dL (7-18); CALCIUM 8.8 mg/dL (8.5-10.1); CHLORIDE 105 mmol/L (98-107); CHOLESTEROL 214 mg/dL (<200); CO2 29 mmol/L (21-32); CREATININE 1.1 mg/dL (0.6-1.0); GLUCOSE 159 mg/dL (74-106); HDL CHOLESTEROL 60 mg/dL (>40); LDL CHOLESTEROL 137 mg/dL (<100); POTASSIUM 4.4 mmol/L (3.5-5.1); SODIUM 140 mmol/L (136-145); TC:HDL 3.6 Ratio (Not establshd); TRIGLYCERIDE 86 mg/dL (<150); TROPONIN-I <0.06 ng/mL (<0.06); VLDL 17 mg/dL (<40)
[2018-09-22 05:49] LABS: SERUM ASSESSMENT Clear
--- NOTE | 2018-09-22 06:53 | NUR ---
Pt a/o x 4. RA. VSS. BS stable after NPH administration per order. NPO after midnight. Bath given by INDUSTRIAL GAS SERVICER SUPERVISOR for procedure today. Consent printed out and placed in front of chart. Denies pain or any other discomfort. Fall precautions maintained. Call light within reach. Will continue to monitor.
--- NOTE | 2018-09-22 08:16 | EKG ---
[address] [address] ELECTROCARDIOGRAM REPORT Name: AFSHIN FERGUSON Room #: 463-P [facility]..#: [id number] Admission: 09/21/18 Attend Phys: Cameron Duncan MD Discharge: Date of : 46 Report #: [id number] THIS REPORT FOR: //name// [facility] ED Test Date: 2018-09-21 Test Time: 09:57:22 Pat Name: AFSHIN FERGUSON Department: Room: 46 Gender: F Advertising Project Manager: ZAG : 1950 Requested By: Jony Choudhary Order Number: [id number] MD: John Monaco Measurements Intervals [place] Rate: 77 P: 69 GA: 220 QRS: 27 QRSD: 91 T: 104 QT: 399 QTc: 452 Interpretive Statements Sinus rhythm Prolonged GA interval Low voltage, precordial leads Anteroseptal infarct, old Borderline repolarization abnormality Compared to ECG 12/12/2017 01:01:39 Low QRS voltage now present Myocardial infarct finding now present Poor R-wave progression no longer present Electronically Signed On 09-22-2018 8:16:42 PER DIEM NURSE by John Monaco [email or web address] <ELECTRONICALLY SIGNED> By: John Monaco MD 09/22/18 0816 0957 0957 John Monaco MD /EPI
--- NOTE | 2018-09-22 08:19 | EKG ---
[address] [address] ELECTROCARDIOGRAM REPORT Name: AFSHIN FERGUSON Room #: 463-P [facility]..#: [id number] Admission: 09/21/18 Attend Phys: Cameron Duncan MD Discharge: Date of : 46 Report #: [id number] THIS REPORT FOR: //name// [facility] Test Date: 2018-09-21 Test Time: 15:29:55 Pat Name: AFSHIN FERGUSON Department: Room: 463 Gender: F Healthcare Architect: Rock SELLERS : 1950 Requested By: Shanon Santos Order Number: [id number] MD: John Monaco Measurements Intervals [place] Rate: 88 P: 78 LA: 222 QRS: 15 QRSD: 89 T: 92 QT: 381 QTc: 461 Interpretive Statements Sinus rhythm Prolonged LA interval Low voltage, precordial leads Anteroseptal infarct, old Nonspecific T abnormalities, lateral leads Compared to ECG 12/12/2017 01:01:39 Low QRS voltage now present Myocardial infarct finding now present T-wave abnormality now present Poor R-wave progression no longer present Electronically Signed On 09-22-2018 8:18:46 [employer] by John Monaco [email or web address] <ELECTRONICALLY SIGNED> By: John Monaco MD 09/22/18 0818 1529 1529 John Monaco MD /EPI
--- NOTE | 2018-09-22 08:57 | EKG ---
[address] [address] ELECTROCARDIOGRAM REPORT Name: AFSHIN FERGUSON Room #: 463-[facility] M.R.#: [id number] Admission: 09/21/18 Attend Phys: Cameron Duncan MD Discharge: Date of : 46 Report #: [id number] THIS REPORT FOR: //name// [facility] Test Date: 2018-09-22 Test Time: 08:50:55 Pat Name: AFSHIN FERGUSON Department: Room: 463 Gender: F Order Processing Manager: LUTHER : 1950 Requested By: Shanon Santos Order Number: [id number] MD: Kaiser Contreras Measurements Intervals [place] Rate: 85 P: 81 IA: 218 QRS: 57 QRSD: 89 T: 93 QT: 394 QTc: 469 Interpretive Statements Sinus rhythm Borderline prolonged IA interval Anteroseptal infarct, old Nonspecific ST and T wave abnormality Baseline wander in lead(s) I Compared to ECG 09/21/2018 15:29:55 No significant changes Electronically Signed On 09-22-2018 8:57:09 POUNCER by Kaiser Contreras [email or web address] <ELECTRONICALLY SIGNED> By: Kaiser Contreras MD, [facility] 09/22/18 0857 0850 0850 Kaiser Contreras MD, [facility] /EPI
--- NOTE | 2018-09-22 10:07 | NUR ---
PT ARRIVED FROM RETAIL PRODUCT ADVISOR POST CARDIAC CATH AT APPROX 0950. PT ALERT AND ORIENTED X4. DENIES PAIN AND SOA. RIGHT GROIN SHEATH REMAINS IN PLACE. SITE CLEAN AND DRY. VSS. SPOUSE AT BEDSIDE. PT AND SPOUSE BOTH DENY QUESTIONS OR CONCERNS REGARDING POC AFTER THIS NURSE PROVIDED POC UPDATE. BEDREST. PT COMPLIANT WITH RLE IMMOBILIZATION. WILL GIVE AM MEDS AND CONTINUE TO MONITOR PT POST CATH.
--- NOTE | 2018-09-22 12:08 | NUR ---
XFER PT HAD CARDIAC CATH THIS AM. WAS XFER TO CCU RM 206. REPORT CALLED TO RN. PRIMARY PHYSICIAN NOTIFIED.
--- NOTE | 2018-09-22 15:31 | CATHLAB ---
[place] [address] [address] [facility] [address] [place] [address] INVASIVE PROCEDURE REPORT Name: AFSHIN FERGUSON ALEKSANDAR Room #: 206-P ADM IN M.R.#: [id number] Admission: 09/21/18 Attend Phys: Cameron Duncan, Discharge: Date of : 46 Date of Service: 09/22/18 1530 Report #: [id number] THIS REPORT FOR: //name// APPROVED REPORT Study performed: 09/22/2018 07:09:54 Patient Details Patient Status: In-Patient Room #: The patient is a 68 year-old female Event Personnel Tylor Smiley Irrigating Pump Operator, Alyssa Wilhelm RN RN, Pastora Melvin Sandifer, David Monitor Procedures Performed Left Heart Cath Coronaries, Bypass Grafts 1818536 LHCCORCABG ELISA Place w/wo Plasty Single RCA 662040 Indication Dyspnea, Unstable angina , Chest pain Risk Factors Hypercholesterolemia, Coronary Artery DiseaseHypertension Previous Procedures/Diagnoses Previous CABG Procedure Narrative The Right Groin^ was infiltrated with 1% Lidocaine subcutaneous anesthesia. A PINNACLE 4FR Sheath #[id number] sheath was inserted into the RFA^. Coronary angiography was performed using coronary diagnostic catheters. The right coronary system was accessed and visualized with a JR4 catheter. The left coronary system was accessed and visualized with a JL4 catheter. The left ventricle was accessed and visualized with a PIGTAIL catheter. Left ventricular/Aortic Valve gradient assessed via catheter pullback. Left ventriculogram was performed in 30 degree projection. Hemostasis was obtained with manual pressure following sheath removal without any complications. The patient tolerated the procedure well and there were no complications associated with the procedure. Intraoperative Conscious Sedation Sedation start time: 7.36 Case end Time: 8.34 [facility] [address] [email or web address] [address] INVASIVE PROCEDURE REPORT Name: FERGUSONAFSHIN ALEKSANDAR Room #: 206-P [facility] IN .R.#: [id number] Admission: 09/21/18 Attend Phys: Cameron Duncan, Discharge: Date of : 46 Date of Service: 09/22/18 1530 Report #: [id number] Fentanyl 50 mcg Versed 2 mg Fluoro Time: 9.12 minutes Dose: DAP 4950 cGycm2 626 mGy Contrast Type and Amount: Visipaque 185 ml Coronary Angiography The patient's coronary anatomy is right dominant. [place] Artery Percent Stenosis Left Main: % Prox LAD: % Mid/Distal LAD: 100 % Circumflex: 90 % RCA: % Ramus: % Diagnostic Cath LAD There is a patent VERA graft to the mid LAD. After the distal anastomosis, there is a severe occlusion of the [place] LAD 80%. There is also a severe stenosis in the distal segment of the LAD, small-caliber vessel. Diagonal 1 There is a patent sequential SVG with a hxqr-or-pjrs anastomosis to the first diagonal artery. OM1 This is supplied by a sequential SVG with an this is a dominant vessel that is anastomosis. Within the distal segment of the vein graft, there is a borderline stenosis, 60%, recommend medical therapy. After the anastomosis, [place] obtuse marginal arteries are small caliber vessel. Right Coronary This is a dominant vessel that is not bypassed. There is a severe stenosis in the mid segment, 90%. R PDA This is a small to moderate size caliber vessel with a severe stenosis in the mid segment, 70%. This is unchanged from prior studies. Recommend medical therapy. RPLV There is a patent vessel, with no flow-limiting lesions. Left Ventriculography The left ventricle is normal in size with normal contractility. The left ventricular ejection fraction is estimated to be 50-55%. Hemodynamics The aortic pressure is 142/72 mmHg with a mean of 75 mmHg. The left ventricular pressure is 189/3 mmHg with a mean of mmHg. The left ventricular end diastolic pressure is 26 mmHg. There was no gradient across the aortic valve upon pullback. Pullback from the left ventricle to the aorta revealed no gradient across the aortic valve. [facility] [address] [place] [address] INVASIVE PROCEDURE REPORT Name: AFSHIN FERGUSON Room #: 206-P ADM IN M.R.#: [id number] Admission: 09/21/18 Attend Phys: Cameron Duncan, Discharge: Date of : 46 Date of Service: 09/22/18 1530 Report #: [id number] PCI Technique Lesion Percutaneous coronary intervention was performed on the mid right coronary artery. The lesion stenosis prior to intervention was 95% with FRANCISCO JAVIER 3 flow. A VISTA 6FR JR 4 #[id number] Guide Catheter was used to engage the ostium. A Luge Wire .014 x 182CM #[id number] Interventional Guidewire was used to cross the lesion. BALLOON DILATION A Balloon catheter Euphora RX 2.5 x 10 #[id number] was inserted and inflated up to 12.00atm for 22seconds. STENT DEPLOYMENT A drug-eluting stent RESOLUTE CORY RX 2.5 X 15 #[id number] was inserted and inflated up to 10.00atm for 21seconds. POST STENT DEPLOYMENT BALLOON DILATION A Balloon catheter Euphora NC RX 2.5 x 12 #[id number] was inserted and inflated up to 16.00atm for 27seconds. Final angiography reveals 0 % stenosis with FRANCISCO JAVIER 3 flow. Conclusion 1. Successful insertion of a drug-eluting stent into the mid segment of the RCA. 2. Patent VERA graft to the mid LAD. There are severe occlusions in the [place] LAD after the anastomosis, recommend staged PCI versus medical therapy. 3. Patent sequential SVG to the first diagonal artery and first obtuse marginal artery. Within the distal segment of the SVG, there is a borderline stenosis, recommend medical therapy. 4. Borderline normal LV systolic function. 5. Recommend dual antiplatelet therapy and aggressive risk factor management. <ELECTRONICALLY SIGNED> By: Tylor Smiley MD 09/22/18 1530 153 1530 Tylor Smiley MD /INF
--- NOTE | 2018-09-22 16:03 | EKG ---
[address] [place] [address] ELECTROCARDIOGRAM REPORT Name: AFSHIN FERGUSON Room #: 206-P ADM IN M.R.#: [id number] Admission: 09/21/18 Attend Phys: Cameron Duncan MD Discharge: Date of : 46 Report #: [id number] THIS REPORT FOR: //name// [facility] Test Date: 2018-09-22 Test Time: 11:34:21 Pat Name: AFSHIN FERGUSON Department: Room: 206 Gender: F Tool Programmer: Delonte RAYMOND : 1950 Requested By: Tylor Smiley Order Number: [id number] MD: Kaiser Contreras Measurements Intervals [place] Rate: 77 P: 81 IA: 208 QRS: 39 QRSD: 85 T: 95 QT: 411 QTc: 466 Interpretive Statements Sinus rhythm Low voltage, extremity leads Probable anteroseptal infarct, old Nonspecific T abnormalities, lateral leads Compared to ECG 09/22/2018 08:50:55 No significant change was found Electronically Signed On 09-22-2018 16:02:53 FUEL OPERATOR by Kaiser Contreras [email or web address] <ELECTRONICALLY SIGNED> By: Kaiser Contreras MD, [facility] 09/22/18 1602 1134 1134 Kaiser Contreras MD, [facility] /EPI
--- NOTE | 2018-09-22 18:56 | NUR ---
POST CATH ON FLOOR WHEN SHEATH PULLED PT HAD VASOVAGAL EPISODE. SHE WAS GIVEN 400ML NS BOLUS AND BP NORMALIZED. RIGHT GROIN POST CATH SITE HAS REMAINED C/D/I SINCE NETWORK TECHNOLOGY INSTRUCTOR PERSONNEL LEFT. VS WERE WNL UNTIL THIS EVENING (SEE POST CATH INTERVENTION) WHEN BP DROPPED AGAIN. PT ASYMPTOMATIC AND GIVEN ANOTHER BOLUS 500ML BOLUS PER DR LEONG. EVENING BP MEDS HELD PER DR MITCHELL WELL. PT BP REMAINS WNL AT THIS TIME AND PT DENIES SYMPTOMS OF HYPOTENSION. VSS AT THIS TIME. PT GAIT REMAINS UNASSESSED. WILL NOTIFY NOC NURSE. NO DISTRESS NOTED.
[2018-09-23 00:14] VITALS: BP 99/52
[2018-09-23 04:03] LABS: HEMATOCRIT 29.1 % (37.0-47.0); HEMOGLOBIN 10.1 gm/dL (12.0-15.0); MCH 30.9 pg (26.0-34.0); MCHC 34.5 g/dL (28.0-37.0); MCV 89.6 fL (80.0-100.0); RBC 3.25 mil/uL (4.20-5.00); RDW 14.3 % (10.5-14.5); WBC 7.1 thou/uL (4.0-11.0)
[2018-09-23 04:06] LABS: ALBUMIN 2.8 g/dL (3.4-5.0); CALCIUM 8.1 mg/dL (8.5-10.1); CREATININE 1.4 mg/dL (0.6-1.0); POTASSIUM 4.5 mmol/L (3.5-5.1); TOTAL BILIRUBIN 0.3 mg/dL (<0.1-1.0); TOTAL PROTEIN 6.2 g/dL (6.4-8.2)
[2018-09-23 04:15] LABS: TROPONIN-I 0.77 ng/mL (<0.06)
[2018-09-23 04:37] VITALS: BP 127/60
--- NOTE | 2018-09-23 05:49 | NUR ---
ASSUMED PT CARE AT 1900 WITH NO SIGN OF DISTRESS NOTED IN PT. PT IS ALERT AND ORIENTED, PT IS STABLE AFTER CARDIAC CATH COMPLETED. NO SIGN OF BLEEDING, HEMATOMA, HYPOTENSION NOTED, BLOOD PRESSURE STABLE OVER NIGHT. BLOOD SUGAR STABLE WELL. NO SIGN OF DISTRESS NOTED. PT IS STABLE THROUGH OUT THE NIGHT. DENIES ANY FURTHER NEEDS AT THIS TIME.
[2018-09-23 07:32] VITALS: BP 126/52
[2018-09-23] MEDS ORDERED: EFFIENT10 MG PO (07:46)
[2018-09-23] MEDS ORDERED: LISINOPRIL5 MG PO (07:46)
[2018-09-23] MEDS ORDERED: LOMOTIL TABLET1 EACH PO (07:47)
--- NOTE | 2018-09-23 08:12 | EKG ---
[address] [place] [address] ELECTROCARDIOGRAM REPORT Name: MARTYAFSHIN Room #: 206-P ADM IN M.R.#: [id number] Admission: 09/21/18 Attend Phys: Cameron Duncan MD Discharge: Date of : 46 Report #: [id number] THIS REPORT FOR: //name// [facility] Test Date: 2018-09-23 Test Time: 06:50:00 Pat Name: AFSHIN FERGUSON Department: Room: 206 P Gender: F Corporate Strategy Analyst: LUTHER : 1950 Requested By: Tylor Smiley Order Number: [id number] MD: Kaiser Contreras Measurements Intervals [place] Rate: 73 P: 60 CA: 213 QRS: 19 QRSD: 86 T: 94 QT: 411 QTc: 453 Interpretive Statements Sinus rhythm Borderline prolonged CA interval Low voltage, extremity and precordial leads Anteroseptal infarct, old Nonspecific T abnormalities, lateral leads Compared to ECG 09/22/2018 11:34:21 No significant changes Electronically Signed On 09-23-2018 8:11:52 MAPLE SUGAR MAKER by Kaiser Contreras [email or web address] <ELECTRONICALLY SIGNED> By: Kaiser Contreras MD, FACC 09/23/18 0811 0650 0650 Kaiser Contreras MD, [facility] /EPI
[2018-09-23] MEDS ORDERED: ATORVASTATIN CA40 MG PO (09:35)
[2018-09-23 10:38] VITALS: BP 126/52
--- NOTE | 2018-09-23 13:39 | NUR ---
Met with patient who reports she cannot afford copay for Effient at this time until she rec her SS check. copied prescription card and took script to inpatient pharmacy. 30 day supply copay is $47.88. Vouched for copay.
--- NOTE | 2018-09-23 14:43 | NUR ---
ASSESSMENT DOCUMENTED. VSS. PT ALER AND ORIENTED. DENIED HAVING PAIN. NO HEMATOMA NOTED ON THE RIGHT GROIN. SEEN BY DR. MASON AND DR. LEONG. ORDERS GIVEN TO DISCHARGE PT TO HOME. DISCHARGE INSTRUCTIONS GIVEN TO PT. PT VERBERLIZED UNDERSTANDING.
== END 2018-09-23 13:47 | disposition home or self-care (01) | DRG 246 ==
LOC: ER 09:56 → EROBS 11:24 → 2N 11:24 → 4W 13:08 → 2N 09-22 09:09 → ENTRNSPT 09-23 13:39 → 2N 09-23 13:47
PROVIDERS: Emergency Medicine; Internal Medicine Cardiovascular Disease; Nurse Practitioner; ADMIT Family Medicine
PROC: B2131ZZ Fluoroscopy of Multiple Coronary Artery Bypass Grafts using Low Osmolar Contrast (ICD-10-PCS; principal; 2018-09-22)
PROC: B2111ZZ Fluoroscopy of Multiple Coronary Arteries using Low Osmolar Contrast (ICD-10-PCS; principal; 2018-09-22)
PROC: 4A023N7 Measurement of Cardiac Sampling and Pressure, Left Heart, Percutaneous Approach (ICD-10-PCS; principal; 2018-09-22)
PROC: 027034Z Dilation of Coronary Artery, One Artery with Drug-eluting Intraluminal Device, Percutaneous Approach (ICD-10-PCS; principal; 2018-09-22)
PROC: B2181ZZ Fluoroscopy of Left Internal Mammary Bypass Graft using Low Osmolar Contrast (ICD-10-PCS; principal; 2018-09-22)
PROC: B2151ZZ Fluoroscopy of Left Heart using Low Osmolar Contrast (ICD-10-PCS; principal; 2018-09-22)
DX: I25.110 Atherosclerotic heart disease of native coronary artery with unstable angina pectoris (principal); I50.33 Acute on chronic diastolic (congestive) heart failure; I50.9 Heart failure, unspecified; E78.5 Hyperlipidemia, unspecified; E78.00 Pure hypercholesterolemia, unspecified; E11.9 Type 2 diabetes mellitus without complications; I11.0 Hypertensive heart disease with heart failure; I42.9 Cardiomyopathy, unspecified; F41.9 Anxiety disorder, unspecified; R19.7 Diarrhea, unspecified; Z96.643 Presence of artificial hip joint, bilateral; J45.909 Unspecified asthma, uncomplicated; K21.9 Gastro-esophageal reflux disease without esophagitis; I25.2 Old myocardial infarction; Z95.1 Presence of aortocoronary bypass graft; Z98.891 History of uterine scar from previous surgery; Z87.81 Personal history of (healed) traumatic fracture; Z90.49 Acquired absence of other specified parts of digestive tract; Z79.4 Long term (current) use of insulin; Z79.82 Long term (current) use of aspirin; Z79.899 Other long term (current) drug therapy; Z88.0 Allergy status to penicillin; Z88.8 Allergy status to other drugs, medicaments and biological substances; Z82.49 Family history of ischemic heart disease and other diseases of the circulatory system; Z80.8 Family history of malignant neoplasm of other organs or systems
CPT/HCPCS: 10045; 10081; 10797

== ENCOUNTER → 2018-10-05 | Outpatient (CLI) | payer OTHER ==
[~2018-10-05] MED LIST changes: +ATORVASTATIN CA40 MG PO; +EFFIENT10 MG PO; +LISINOPRIL5 MG PO; +LOMOTIL TABLET1 EACH PO
== END ==
LOC: HYPER 07:25
DX: E11.621 Type 2 diabetes mellitus with foot ulcer (principal); L97.522 Non-pressure chronic ulcer of other part of left foot with fat layer exposed; L84 Corns and callosities; I25.2 Old myocardial infarction; K21.9 Gastro-esophageal reflux disease without esophagitis; Z90.49 Acquired absence of other specified parts of digestive tract; Z79.4 Long term (current) use of insulin; Z98.49 Cataract extraction status, unspecified eye

== ENCOUNTER 2018-10-08 07:51 | Observation (INO) | payer OTHER ==
[~2018-10-08] VITALS: Ht 165.1 cm; Wt 61.2 kg
[2018-10-08] VITALS (14 sets, daily range): BP systolic 97–154; BP diastolic 42–94
[2018-10-08 08:28] LABS: HEMATOCRIT 29.9 % (37.0-47.0); HEMOGLOBIN 10.2 gm/dL (12.0-15.0); MCH 30.9 pg (26.0-34.0); MCV 90.9 fL (80.0-100.0); RBC 3.29 mil/uL (4.20-5.00); RDW 13.7 % (10.5-14.5); WBC 8.9 thou/uL (4.0-11.0)
[2018-10-08 08:53] LABS: CALCIUM 9.4 mg/dL (8.5-10.1); CREATININE 1.1 mg/dL (0.6-1.0); POTASSIUM 4.4 mmol/L (3.5-5.1)
--- NOTE | 2018-10-08 11:10 | NUR ---
PT ARRIVED TO UNIT APPROX 1030 FROM CRM COORDINATOR POST SCHEDULED STENT PLACEMENT. PT ALERT AND ORIENTED X4. DENIES PAIN AND SOA. VSS. AT BEDSIDE. LEFT GROIN POST CATH SITE C/D/I. PT AND DENY QIESTIONS OR CONCERNS REGARDING POC. WOUND NOTED TO LEFT FOOT PLANTAR. WILL F/U PER PROTOCOL.
--- NOTE | 2018-10-08 12:51 | CATHLAB ---
[address] [place] [address] INVASIVE PROCEDURE REPORT Name: AFSHIN FERGUSON ALEKSANDAR Room #: 206-P ADM IN ..#: [id number] ������������� Admission: 10/08/18 ������������� Attend Phys: Tylor Smiley MD Discharge: ��� ������������� ��� Date of : 46 Date of Service: 10/08/18 1251 �� Report #: [id number] �������� ��������������������������������������������[id number] THIS REPORT FOR: //name// APPROVED REPORT Study performed: 10/08/2018 08:11:54 Patient Details Patient Status: Out-Patient Room #: The patient is a 68 year-old female Event Personnel Tylor Smiley Data Communications Technician, Tevin Duvall RN RN, Mick Brizuela RN, Pascale Taveras RTR, Marina Berrios David Monitor Procedures Performed Coronary Angiography Only [id number] CORANG ELISA Revasc Graft Single LAD C9604 SVGREVSING Indication Chest pain, The patient recently presented with unstable angina. Cardiac catheterization revealed a severe occlusion in the [place] RCA, undergoing stent placement. There is a patent VERA graft to the mid LAD, however, after the anastomosis, there are severe occlusions in the mid and distal segments of the [place] LAD. The patient presents for a staged angioplasty procedure. Risk Factors Hypercholesterolemia, Coronary Artery DiseaseHypertension, Diabetes Previous Procedures/Diagnoses Previous CABGPrevious PCI Procedure Narrative The Left Groin^ was infiltrated with 1% Lidocaine subcutaneous anesthesia. A PINNACLE 6FR Sheath #[id number] sheath was inserted into the LFA^. Coronary angiography was performed using coronary diagnostic catheters. The right coronary system was accessed and visualized with a 6FR JR 4 #[id number] catheter. Closure device was deployed with a 6 Fr MYNXGRIP 6/7F #[id number]. The patient tolerated the procedure well and there were no complications associated with the procedure. Intraoperative Conscious Sedation [facility] [place] [address] INVASIVE PROCEDURE REPORT Name: AFSHIN FERGUSON [facility] Room #: 206-P ADM IN M.R.#: [id number] ������������� Admission: 10/08/18 ������������� Attend Phys: Tylor Smiley MD Discharge: ��� ������������� ��� Date of : 46 Date of Service: 10/08/18 1251 �� Report #: [id number] �������� ��������������������������������������������[id number] Sedation start time: 9.07 Case end Time: 10.11 Fentanyl 100 mcg Versed 2 mg Fluoro Time: 13.23 minutes Dose: DAP 3483 cGycm2 337 mGy Contrast Type and Amount: Visipaque 125 ml Hemodynamics The aortic pressure is 134/58 mmHg with a mean of 72 mmHg. PCI Technique Lesion Anticoagulation was achieved with Angiomax. Patient was preloaded with Effient. Percutaneous coronary intervention was performed on the distal segment of the [place] LAD (performed through the VERA graft). The lesion stenosis prior to intervention was 95% with FRANCISCO JAVIER 3 flow. A VISTA 6FR IM #[id number] Guide Catheter was used to engage the ostium. BALLOON DILATION A Balloon catheter Euphora RX 2.0 x 10 #[id number] was inserted and inflated up to 6atm for 25seconds. Additional Inflation: 6atm for 34seconds. 2.0X12 14FOR 31 SEC STENT DEPLOYMENT A drug-eluting stent RESOLUTE CORY RX 2.0 X 8 #[id number] was inserted and inflated up to 12atm for 61seconds. Final angiography reveals 0 % stenosis with FRANCISCO JAVIER 3 flow. PCI Technique Lesion 2 Percutaneous coronary intervention was performed on the mid segment of the [place] LAD (performed through the VERA graft). The lesion stenosis prior to intervention was 95% with FRANCISCO JAVIER 3 flow. Balloon Dilation A Balloon catheter Euphora RX 2.0 x 10 #[id number] was inserted and inflated up to 6.00atm for 25seconds. Stent Deployment A drug-eluting stent RESOLUTE CORY RX 2.0 X 12 #[id number] was inserted and inflated up to 14.00atm for 31seconds. Final angiography reveals 0 % stenosis with FRANCISCO JAVIER 3 flow. [facility] [address] [place] [address] INVASIVE PROCEDURE REPORT Name: AFSHIN FERGUSON Room #: 206-P [facility] IN .R.#: [id number] ������������� Admission: 10/08/18 ������������� Attend Phys: Tylor Smiley MD Discharge: ��� ������������� ��� Date of : 46 Date of Service: 10/08/18 1251 �� Report #: [id number] �������� ��������������������������������������������[id number] Conclusion 1. Successful insertion of drug-eluting stents into the mid and distal segments of the [place] LAD, performed through the VERA graft. 2. Recommend dual antiplatelet therapy. 3. Recommend aggressive risk factor management. ��������������������������������������������� <ELECTRONICALLY SIGNED> ���������������������������������������� By: Tylor Smiley MD ��������������������������������������������� 10/08/18 1251 1251 1251 Tylor Smiley MD /INF
--- NOTE | 2018-10-08 16:41 | EKG ---
[address] [address] ELECTROCARDIOGRAM REPORT Name: COLIN FERGUSONKAREN HUERTAS Room #: 206-P [facility]..#: [id number] ������������������ Admission: 10/08/18 ������������������ Attend Phys: Tylor Smiley MD Discharge: ������������������ Date of : 46 Report #: [id number] ����������������������������������������������������������������� [id number] THIS REPORT FOR: //name// [facility] Test Date: 2018-10-08 Test Time: 08:21:42 Pat Name: AFSHIN FERGUSON Department: Room: 206 Gender: F Leather Belt Shaper: Delonte RAYMOND : 1950 Requested By: Tylor Smiley Order Number: [id number] MD: John Monaco Measurements Intervals [place] Rate: 72 P: 95 WI: 214 QRS: 27 QRSD: 84 T: 82 QT: 388 QTc: 425 Interpretive Statements Sinus rhythm Borderline prolonged [place] interval Borderline low voltage, extremity leads Anteroseptal infarct, old Compared to ECG 09/23/2018 06:50:00 T-wave abnormality no longer present Myocardial infarct finding still present Electronically Signed On 10-08-2018 16:41:40 ANALYTICAL CONSULTANT by John Monaco [email or web address] ��������������������������������������������� <ELECTRONICALLY SIGNED> ���������������������������������������� By: John Monaco MD ��������������������������������������������� 10/08/18 1641 0 0 John Monaco MD /EPI
--- NOTE | 2018-10-08 16:45 | EKG ---
[address] [address] ELECTROCARDIOGRAM REPORT Name: AFSHIN FERGUSON ALEKSANDAR Room #: 206-P [facility]..#: [id number] ������������������ Admission: 10/08/18 ������������������ Attend Phys: Tylor Smiley MD Discharge: ������������������ Date of : 46 Report #: [id number] ����������������������������������������������������������������� [id number] THIS REPORT FOR: //name// [facility] Test Date: 2018-10-08 Test Time: 11:11:49 Pat Name: AFSHIN FERGUSON Department: Room: 206 Gender: F Airframe And Powerplant Mechanic: Delonte RAYMOND : 1950 Requested By: Tylor Smiley Order Number: [id number] MD: John Monaco Measurements Intervals [place] Rate: 61 P: 65 AL: 216 QRS: 8 QRSD: 87 T: 85 QT: 436 QTc: 440 Interpretive Statements Sinus rhythm Borderline prolonged [place] interval Low voltage, precordial leads Compared to ECG 09/23/2018 06:50:00 Myocardial infarct finding no longer present T-wave abnormality no longer present Electronically Signed On 10-08-2018 16:45:14 WHEEL AND AXLE INSPECTOR by John Monaco [email or web address] ��������������������������������������������� <ELECTRONICALLY SIGNED> ���������������������������������������� By: John Monaco MD ��������������������������������������������� 10/08/18 1645 1111 1111 John Monaco MD /EPI
--- NOTE | 2018-10-08 18:07 | NUR ---
NO CLINCAL CHANGES SINCE PREVIOUS NOTE. VSS. POST CATH VS AND FREQUENT GROIN CHECKS COMPLETED. LEFT GROIN POST CATH SITE C/D/I. NO HEMATOMA PRESENT. UP WITH STEADY GAIT BUT INFORMED TO CALL FOR ASSIST. AGREEABLE. BS WNL THIS AFTERNOON. PT DENIES QUESTIONS OR CONCERNS REGARDING POC. NO DISTRESS NOTED.
[2018-10-09 00:01] VITALS: BP 130/67
[2018-10-09 04:50] VITALS: BP 138/81
--- NOTE | 2018-10-09 05:17 | NUR ---
PT. AOX4; NO C/O PAIN; NO BLEDDING OR EMATOMA OVER L. GROIN AREA; ABLE TO REST THROUGH THE NIGHT; EDUCATED ABOUT FALL PREVENTION; ST UNDERSTANDING; INSULIN NO GIVEN AT HS; ASSESSMENT CHARGED; FOLLOWING POC; WILL PASS ON REPORT.
[2018-10-09 05:34] LABS: HEMATOCRIT 30.3 % (37.0-47.0); HEMOGLOBIN 10.2 gm/dL (12.0-15.0); MCH 31.1 pg (26.0-34.0); MCHC 33.8 g/dL (28.0-37.0); MCV 91.8 fL (80.0-100.0); RBC 3.3 mil/uL (4.20-5.00); RDW 13.8 % (10.5-14.5); WBC 7.1 thou/uL (4.0-11.0)
[2018-10-09 06:00] LABS: ALBUMIN 2.5 g/dL (3.4-5.0); ANION GAP 6 mmol/L (7-16); BUN 30 mg/dL (7-18); CHLORIDE 103 mmol/L (98-107); CO2 31 mmol/L (21-32); CREATININE 1.2 mg/dL (0.6-1.0); GLUCOSE 276 mg/dL (74-106); POTASSIUM 5.1 mmol/L (3.5-5.1); SGOT 13 U/L (15-37); SGPT 8 U/L (30-65); SODIUM 140 mmol/L (136-145); TOTAL BILIRUBIN < 0.1 mg/dL (<0.1-1.0); TOTAL PROTEIN 6.8 g/dL (6.4-8.2); TROPONIN-I <0.06 ng/mL (<0.06)
[2018-10-09 07:54] VITALS: BP 151/83
--- NOTE | 2018-10-09 08:12 | EKG ---
[address] [place] [address] ELECTROCARDIOGRAM REPORT Name: AFSHIN FERGUSON Room #: 206-P [facility]..#: [id number] ������������������ Admission: 10/08/18 ������������������ Attend Phys: Tylor Smiley MD Discharge: ������������������ Date of : 46 Report #: [id number] ����������������������������������������������������������������� [id number] THIS REPORT FOR: //name// [facility] Test Date: 2018-10-09 Test Time: 07:04:32 Pat Name: AFSHIN FERGUSON Department: Room: 206 P Gender: F Delivery Clerk: LUTHER : 1950 Requested By: Tylor Smiley Order Number: [id number] MD: Kaiser Contreras Measurements Intervals [place] Rate: 73 P: 48 IN: 212 QRS: 7 QRSD: 83 T: 88 QT: 392 QTc: 432 Interpretive Statements Sinus rhythm Borderline prolonged IN interval Low voltage, precordial leads Compared to ECG 10/08/2018 11:11:49 No significant changes Electronically Signed On 10-09-2018 8:11:44 KIT ASSEMBLER by Kaiser Contreras [email or web address] ��������������������������������������������� <ELECTRONICALLY SIGNED> ���������������������������������������� By: Kaiser Contreras MD, [facility] ��������������������������������������������� 10/09/18 0811 3 3 Kaiser Contreras MD, [facility] /EPI
[2018-10-09 10:26] VITALS: BP 151/83
[2018-10-09 10:55] VITALS: BP 151/83
--- NOTE | 2018-10-12 08:57 | D ---
[facility] [place] [address] DISCHARGE SUMMARY Name: AFSHIN FERGUSON ALEKSANDAR Room #: 206-P [facility] Ej Boothe#: [id number] Admission: 10/08/18 ������������������ Attend Phys: Tylor Smiley MD Discharge: 10/09/18 ������������������ Date of : 46 Report #: [id number] THIS REPORT FOR: //name// CC: Tylor Monroe Nydia Quintanilla DATE OF SERVICE: 10/09/2018 FINAL DIAGNOSES: 1. Coronary artery disease, status post coronary intervention. 2. Prior history of coronary artery bypass graft. 3. Diabetes mellitus. 4. Hypertension. 5. Hypercholesterolemia. 6. Depression. 7. Foot ulcer. HOSPITAL COURSE: Please see the original H and P for full details. The patient has a prior history of coronary artery bypass graft, recently presented with unstable angina to [facility]. She underwent placement of a drug-eluting stent to the RCA. She returned on this admission for a staged angioplasty involving the LAD. There is a patent VERA graft to the mid LAD. After the anastomosis, there are severe occlusions in the mid and distal segments of the [place] LAD. Please see the cardiac catheterization report for full details. Through the VERA graft, angioplasty was performed with placement of two drug-eluting stents. The patient remained hemodynamically stable overnight. She denies any chest pains or shortness of breath. She has an ulcer in her foot, managed by [facility]. She was prescribed a new antibiotic by [facility]. FINAL DISPOSITION: She will continue her Protonix 40 mg daily, Zoloft 100 mg, Coreg 3.125 mg daily, tramadol, aspirin once a day, Effient 10 mg daily, insulin as directed, lisinopril 5 mg, Lipitor 40 mg. She is given a followup appointment in a few weeks. ��������������������������������������������� <ELECTRONICALLY SIGNED> ���������������������������������������� By: Tylor Smiley MD ��������������������������������������������� 10/12/18 0857 0832 0945 Tylor Smiley MD /nt
== END 2018-10-09 10:54 | disposition home or self-care (01) ==
LOC: CATH 07:51 → 2N 10:24 → CATH 14:43 → ENTRNSPT 10-09 10:40 → EDTRNSPTSTS 10-09 10:42 → 2N 10-09 10:54
PROVIDERS: ADMIT Internal Medicine Cardiovascular Disease
DX: I25.10 Atherosclerotic heart disease of native coronary artery without angina pectoris (principal); I10 Essential (primary) hypertension; E78.5 Hyperlipidemia, unspecified; F32.9 Major depressive disorder, single episode, unspecified; E11.621 Type 2 diabetes mellitus with foot ulcer; L97.509 Non-pressure chronic ulcer of other part of unspecified foot with unspecified severity; J45.909 Unspecified asthma, uncomplicated; K21.9 Gastro-esophageal reflux disease without esophagitis; Z79.82 Long term (current) use of aspirin; Z79.4 Long term (current) use of insulin; Z79.899 Other long term (current) drug therapy; Z95.1 Presence of aortocoronary bypass graft

== ENCOUNTER → 2018-10-19 | Outpatient (CLI) | payer OTHER | LOC: HYPER 06:55 | DX: E11.621 Type 2 diabetes mellitus with foot ulcer (principal); L97.526 Non-pressure chronic ulcer of other part of left foot with bone involvement without evidence of necrosis; L84 Corns and callosities; I25.2 Old myocardial infarction; K21.9 Gastro-esophageal reflux disease without esophagitis; Z79.4 Long term (current) use of insulin; Z95.5 Presence of coronary angioplasty implant and graft ==

== ENCOUNTER → 2018-11-03 | Outpatient (CLI) | payer OTHER | LOC: HYPER 06:46 | DX: E11.621 Type 2 diabetes mellitus with foot ulcer (principal); L97.522 Non-pressure chronic ulcer of other part of left foot with fat layer exposed; I25.2 Old myocardial infarction; L84 Corns and callosities; K21.9 Gastro-esophageal reflux disease without esophagitis; Z79.4 Long term (current) use of insulin; Z48.89 Encounter for other specified surgical aftercare ==

== ENCOUNTER → 2018-11-10 | Outpatient (CLI) | payer OTHER | LOC: HYPER 07:16 | DX: E11.621 Type 2 diabetes mellitus with foot ulcer (principal); L97.522 Non-pressure chronic ulcer of other part of left foot with fat layer exposed; L02.612 Cutaneous abscess of left foot; L84 Corns and callosities; I25.2 Old myocardial infarction; K21.9 Gastro-esophageal reflux disease without esophagitis; Z79.4 Long term (current) use of insulin; Z48.89 Encounter for other specified surgical aftercare ==

== ENCOUNTER → 2018-12-07 | Outpatient (CLI) | payer OTHER | LOC: HYPER 06:52 | DX: E11.621 Type 2 diabetes mellitus with foot ulcer (principal); L97.522 Non-pressure chronic ulcer of other part of left foot with fat layer exposed; L02.612 Cutaneous abscess of left foot; L84 Corns and callosities; I25.2 Old myocardial infarction; K21.9 Gastro-esophageal reflux disease without esophagitis; Z79.4 Long term (current) use of insulin; Z48.89 Encounter for other specified surgical aftercare ==

== ENCOUNTER → 2019-04-13 | Outpatient (CLI) | payer OTHER | LOC: HYPER 06:54 | DX: E11.621 Type 2 diabetes mellitus with foot ulcer (principal); L97.521 Non-pressure chronic ulcer of other part of left foot limited to breakdown of skin; R60.1 Generalized edema; I25.2 Old myocardial infarction; K21.9 Gastro-esophageal reflux disease without esophagitis; Z95.5 Presence of coronary angioplasty implant and graft; Z79.4 Long term (current) use of insulin; Z48.89 Encounter for other specified surgical aftercare ==

== ENCOUNTER → 2019-04-27 | Outpatient (CLI) | payer OTHER | LOC: HYPER 06:49 | DX: E11.621 Type 2 diabetes mellitus with foot ulcer (principal); L97.521 Non-pressure chronic ulcer of other part of left foot limited to breakdown of skin; L84 Corns and callosities; I25.2 Old myocardial infarction; K21.9 Gastro-esophageal reflux disease without esophagitis; R60.1 Generalized edema; Z79.4 Long term (current) use of insulin; Z48.89 Encounter for other specified surgical aftercare ==

== ENCOUNTER → 2019-09-14 | Outpatient (CLI) | payer OTHER ==
[~2019-09-14] MED LIST changes: -ATORVASTATIN CA40 MG PO; +CRESTOR10 MG PO; +LIPITOR40 MG PO
== END ==
LOC: SJCVC 13:04
DX: I21.29 ST elevation (STEMI) myocardial infarction involving other sites (principal); I10 Essential (primary) hypertension; I25.10 Atherosclerotic heart disease of native coronary artery without angina pectoris; J45.909 Unspecified asthma, uncomplicated; R94.31 Abnormal electrocardiogram [ECG] [EKG]; E11.9 Type 2 diabetes mellitus without complications; E78.00 Pure hypercholesterolemia, unspecified; Z79.899 Other long term (current) drug therapy; Z79.82 Long term (current) use of aspirin

== ENCOUNTER → 2019-10-08 | Outpatient (CLI) | payer OTHER ==
[~2019-10-08] VITALS: Ht 165.1 cm; Wt 64.4 kg
--- NOTE | 2019-10-11 09:58 | P ---
[facility] [place] [address] PROCEDURE REPORT Name: AFSHIN FERGUSON ALEKSANDAR Room #: REG YUDYReynaldo Boothe#: [id number] Admission: 10/08/19 Attend Phys: Chicho Arndt Discharge: Date of : 46 Report #: [id number] THIS REPORT FOR: cc: Cameron Duncan MD, Neal A. MD Mc[place]hin[place], Christian C. MD ~ CC: Chicho Duncan MD DATE OF SERVICE: 10/08/2019 PROCEDURE PERFORMED: Colonoscopy with polypectomies. HISTORY OF PRESENT ILLNESS: The patient is a 69-year-old female who was seen in the office on 09/21/2019, with reports there are no change in her bowel habits, feels constipated at times. This is also followed by diarrhea for several days. She denies any blood in her stools. Her weight has been stable. Last colonoscopy was at least 30 years ago. No family history of colon cancer. DESCRIPTION OF PROCEDURE: The risks and benefits of the procedure were explained to the patient, those risks including but not limited to bleeding, perforation and the risk of sedation. She understood these risks and gave informed consent. Sedation was given using propofol per anesthesia. Actually, a digital rectal exam was initially performed, which was normal. Next, using a standard Olympus colonoscope, the scope was placed in the patient's anus and advanced under direct vision to the cecum. The overall prep was excellent. In the cecum, there was a 5 mm sessile polyp. This was removed by snare cautery, otherwise normal. The ileocecal valve was normal. The ascending colon was normal. Random biopsies were obtained to rule out the possibility of microscopic colitis. In the transverse colon, two 5-6 mm sessile polyps were noted, both removed by snare cautery. The descending and sigmoid colon were normal. The rectal mucosa was normal. On retroflexion, small nonbleeding internal hemorrhoids noted. The scope was then withdrawn and the procedure terminated. The patient tolerated the procedure well. IMPRESSION: 1. Three small colonic polyps. 2. Small internal hemorrhoids. 3. Otherwise, normal colonoscopy. RECOMMENDATIONS: Await biopsy results. If biopsies are negative for microscopic colitis, we would recommend a CT scan of her abdomen and pelvis. [address] [address] PROCEDURE REPORT Name: AFSHIN FERGUSON ALEKSANDAR Room #: REG LEONARDO Boothe#: [id number] Admission: 10/08/19 Attend Phys: Chicho Arndt Discharge: Date of : 46 Report #: [id number] Thank you for allowing me to participate in her care. <ELECTRONICALLY SIGNED> By: Chicho Kumar MD 10/11/19 0958 0904 0937 Chicho Kumar MD /nt
--- NOTE | 2019-10-11 17:07 | PATH ---
[facility] [place] [address] PATHOLOGY RPT PROCEDURE Name: JENNIFER FERGUSON ALEKSANDAR Room #: REG YUDYReynaldo Villarreal.#: [id number] Admission: 10/08/19 Date of : 46 Discharge: Report #: [id number] Path Case #: [id number] [facility] Accession Number: [id number] . 01 Material submitted: . PART A: colon - POLYP AT TRANSVERSE COLON X2. Modifiers: transverse PART B: cecum - POLYP AT CECUM PART C: colon - RANDOM BIOPSIES . 01 Clinical history: . Change in bowel habits. . 02 Diagnosis: A. Polyp x2, transverse colon, endoscopic biopsy: - Tubular adenoma x2. - Negative for high grade dysplasia. . B. Polyp, at cecum, endoscopic biopsy: - Tubular adenoma. - Negative for high grade dysplasia. . C. Large intestinal mucosa, random, rule out microscopic colitis, endoscopic biopsy: - Mild active colitis, (see comment). - Negative for dysplasia or malignancy. . (IUV:mml; 10/11/2019) QLM 10/11/2019 1412 Local . 02 Comment: Sections of the colonic mucosa designated "random biopsies" show focal cryptitis, and a moderately cellular lamina propria composed predominantly of lymphocytes and plasma cells and occasional eosinophils. Surface ulceration is not identified. There are no crypt abscesses, granulomas or viral inclusions. The process affects all the fragments with a similar intensity. Given the description, the differential diagnosis includes focal acute self-limited episode of colitis, infectious-type of colitis, medication/drug-induced colitis, acute diverticulitis, as well as early inflammatory bowel disease. Please correlate with clinical as well as endoscopic findings. . (IUV:mml; 10/11/2019) . 02 Electronically signed: . Karma Lala MD, Pathologist NPI- [id number] . [address] [place] [address] PATHOLOGY RPT PROCEDURE Name: JENNIFER FERGUSON ALEKSANDAR Room #: REG CLReynaldo Boothe#: [id number] Admission: 10/08/19 Date of : 46 Discharge: Report #: [id number] Path Case #: [id number] Gross description: . A. Received in formalin labeled "Jennifer Ferguson, polyp at transverse colon x2" is a 1.0 x 0.6 x 0.3 cm aggregate of frazier-brown soft tissue fragments. The apparent resection margins are inked black. The largest portion is bisected and submitted in A1. The smaller portions are submitted without sectioning in A2. . B. Received in formalin labeled "Santi Jennifer, polyp at cecum" is a 0.3 x 0.2 x 0.2 cm aggregate of frazier-brown soft tissue fragments. The specimen is submitted entirely in B1. . C. Received in formalin labeled "Jennifer Ferguson, random BX to r/o microscopic colitis" is a 1.0 x 0.5 x 0.1 cm aggregate of frazier-brown soft tissue fragments. The specimen is submitted entirely in C1. ([facility]; 10/10/2019) [facility] 10/10/2019 1248 Local . 02 Pathologist provided ICD-10: D12.3, D12.0, K52.9 . 02 CPT . 074016, 488244, 140865 Specimen Comment: A courtesy copy of this report has been sent to [phone] Specimen Comment: Report sent to DR MASON Performed at: [address], [place] [id number] MD Guy Mora MD Phone: [phone] Performed at: [address] [id number] MD Karma Lala MD Phone: [phone]
== END | disposition home or self-care (01) ==
LOC: GI 06:45
DX: K59.00 Constipation, unspecified (principal); D12.3 Benign neoplasm of transverse colon; D12.0 Benign neoplasm of cecum; K52.9 Noninfective gastroenteritis and colitis, unspecified; K64.8 Other hemorrhoids; I11.0 Hypertensive heart disease with heart failure; I50.9 Heart failure, unspecified; E11.9 Type 2 diabetes mellitus without complications; F32.9 Major depressive disorder, single episode, unspecified; I25.2 Old myocardial infarction; I42.9 Cardiomyopathy, unspecified; K21.9 Gastro-esophageal reflux disease without esophagitis; E78.00 Pure hypercholesterolemia, unspecified; Z98.890 Other specified postprocedural states; Z79.899 Other long term (current) drug therapy; Z96.643 Presence of artificial hip joint, bilateral; Z79.4 Long term (current) use of insulin; Z95.1 Presence of aortocoronary bypass graft; Z90.49 Acquired absence of other specified parts of digestive tract; Z98.41 Cataract extraction status, right eye; Z98.42 Cataract extraction status, left eye; Z88.0 Allergy status to penicillin; Z88.8 Allergy status to other drugs, medicaments and biological substances; Z79.82 Long term (current) use of aspirin
CPT/HCPCS: 62110; 62900

== ENCOUNTER → 2019-10-25 | Outpatient (CLI) | payer OTHER | LOC: LABMALL 09:13 | PROVIDERS: Specialist | DX: K44.9 Diaphragmatic hernia without obstruction or gangrene (principal); K29.01 Acute gastritis with bleeding; R19.4 Change in bowel habit; D50.8 Other iron deficiency anemias; I25.10 Atherosclerotic heart disease of native coronary artery without angina pectoris; D73.89 Other diseases of spleen; Z96.643 Presence of artificial hip joint, bilateral; Z90.49 Acquired absence of other specified parts of digestive tract ==

== ENCOUNTER → 2019-12-22 | Outpatient (CLI) | payer OTHER | LOC: SJCVCIMAG 14:00 → SJCVC 14:00 | DX: M79.89 Other specified soft tissue disorders (principal); M79.661 Pain in right lower leg; M79.662 Pain in left lower leg; R60.9 Edema, unspecified; I25.10 Atherosclerotic heart disease of native coronary artery without angina pectoris; I10 Essential (primary) hypertension; E78.00 Pure hypercholesterolemia, unspecified ==

== ENCOUNTER → 2020-01-05 | Outpatient (CLI) | payer OTHER | LOC: SJCVC 11:07 | PROVIDERS: ATTEND Internal Medicine Cardiovascular Disease | DX: R60.9 Edema, unspecified (principal) ==

== ENCOUNTER → 2020-01-28 | Outpatient (CLI) | payer OTHER | LOC: SJCVCIMAG 01-21 08:52 | PROVIDERS: ATTEND Internal Medicine Cardiovascular Disease | DX: I08.8 Other rheumatic multiple valve diseases (principal); R94.31 Abnormal electrocardiogram [ECG] [EKG]; I10 Essential (primary) hypertension; I27.20 Pulmonary hypertension, unspecified; I25.10 Atherosclerotic heart disease of native coronary artery without angina pectoris; E78.00 Pure hypercholesterolemia, unspecified; E11.9 Type 2 diabetes mellitus without complications; J45.909 Unspecified asthma, uncomplicated; Z79.899 Other long term (current) drug therapy ==

== ENCOUNTER → 2020-06-09 | Outpatient (CLI) | payer OTHER | LOC: SJCVCIMAG 08:22 | PROVIDERS: ATTEND Internal Medicine Cardiovascular Disease | DX: I25.10 Atherosclerotic heart disease of native coronary artery without angina pectoris (principal); I44.0 Atrioventricular block, first degree; I10 Essential (primary) hypertension; E11.9 Type 2 diabetes mellitus without complications; E78.00 Pure hypercholesterolemia, unspecified; Z79.899 Other long term (current) drug therapy ==

== ENCOUNTER → 2020-09-22 | Outpatient (CLI) | payer OTHER | LOC: CAT 09:14 | PROVIDERS: ATTEND Family Medicine | DX: R10.84 Generalized abdominal pain (principal) ==

== ENCOUNTER → 2020-11-27 | Outpatient (CLI) | payer OTHER | LOC: HYPER 09:59 | PROVIDERS: ATTEND Emergency Medicine | DX: L84 Corns and callosities (principal); E11.621 Type 2 diabetes mellitus with foot ulcer; L97.511 Non-pressure chronic ulcer of other part of right foot limited to breakdown of skin; I25.2 Old myocardial infarction; K21.9 Gastro-esophageal reflux disease without esophagitis; Z95.5 Presence of coronary angioplasty implant and graft; Z89.421 Acquired absence of other right toe(s); Z79.4 Long term (current) use of insulin ==

== ENCOUNTER 2020-12-26 08:38 | Inpatient (IN) | payer OTHER ==
[~2020-12-26] VITALS: Ht 165.1 cm; Wt 59.9 kg
[2020-12-26] MEDS ORDERED: VITAMIN C100 MG PO (08:55)
[2020-12-26] MEDS ORDERED: ALBUTEROL2.5 MG/31 INH (08:55)
[2020-12-26] MEDS ORDERED: CLOTRIMAZOLE-BE15 GM TOP (08:56)
[2020-12-26] MEDS ORDERED: BENTYL 10 MG CA10 MG PO (08:57)
[2020-12-26] MEDS ORDERED: PROZAC20 M1 PO (08:58)
[2020-12-26] MEDS ORDERED: FERROUS GLUCON324 M2 PO (08:58)
[2020-12-26] MEDS ORDERED: NEURONTIN 300M300 M2 PO (08:59)
[2020-12-26] MEDS ORDERED: HYDROCODON-ACE1 EAC7 PO (08:59)
[2020-12-26] MEDS ORDERED: PNV 29-1 TABLE1 EACH PO (09:00)
[2020-12-26] MEDS ORDERED: ZINC50 M3 PO (09:00)
[2020-12-26 09:11] VITALS: BP 96/55
[2020-12-26 09:35] LABS: ABSOLUTE NEUTROPHILS 3.6 thou/uL (1.4-8.2); BASOPHILS 1.2 % (0.0-2.0); EOSINOPHILS 4.3 % (0.0-3.0); HEMATOCRIT 37.7 % (37.0-47.0); HEMOGLOBIN 12.3 gm/dL (12.0-15.0); LYMPHOCYTES 29.8 % (24.0-44.0); MCHC 32.6 g/dL (28.0-37.0); MONOCYTES 11.8 % (1.0-8.0); PLATELET COUNT 304 thou/uL (150-400); POLYS 52.9 % (36.0-66.0); RBC 3.96 mil/uL (4.20-5.00); RDW 14.3 % (10.5-14.5); WBC 6.7 thou/uL (4.0-11.0)
[2020-12-26 09:48] LABS: ANION GAP 7 mmol/L (7-16); BUN 26 mg/dL (7-18); CALCIUM 9.1 mg/dL (8.5-10.1); CHLORIDE 105 mmol/L (98-107); CO2 31 mmol/L (21-32); CREATININE 1.1 mg/dL (0.6-1.0); GLUCOSE 136 mg/dL (74-106); SODIUM 143 mmol/L (136-145)
[2020-12-26 09:58] LABS: ALBUMIN 3.4 g/dL (3.4-5.0); MAGNESIUM 1.9 mg/dL (1.8-2.4); SGOT 14 U/L (15-37); SGPT 17 U/L (14-59); TOTAL BILIRUBIN 0.3 mg/dL (0.2-1.0); TOTAL PROTEIN 7.6 g/dL (6.4-8.2); TROPONIN-I <0.06 ng/mL (<0.06)
--- NOTE | 2020-12-26 10:40 | EKG ---
[address] [address] [facility] [place] [address] ELECTROCARDIOGRAM REPORT Name: COLIN FERGUSONKAREN Mackey Room #: REG [facility]#: [id number] Admission: 12/26/20 Attend Phys: Discharge: Date of : 46 Report #: [id number] [facility] ED Test Date: 2020-12-26 Test Time: 08:44:36 Pat Name: AFSHIN FERGUSON Department: Room: Gender: F Wind Turbine Electrical Engineer: SALOMON : 1950 Requested By: Emily West Order Number: [id number] MD: Jesus Ruano Measurements Intervals [place] Rate: 76 P: [place]: QRS: 56 QRSD: 90 T: 149 QT: 395 QTc: 445 Interpretive Statements Artifact, NSR Anteroseptal infarct, age indeterminate Compared to ECG 10/09/2018 07:04:32 Ventricular premature complex(es) now present Myocardial infarct finding now present ST (T wave) deviation now present Electronically Signed On 12-26-2020 10:40:18 CDT by Jesus Ruano [email or web address] <ELECTRONICALLY SIGNED> By: Jesus Ruano MD, [facility] 12/26/20 1040 3 Jesus Ruano MD, [facility] /EPI
[2020-12-26 10:42] LABS: URINE BILIRUBIN NEGATIVE (Negative); URINE BLOOD NEGATIVE (Negative); URINE CLARITY CLEAR; URINE COLOR YELLOW; URINE GLUCOSE-RANDOM* 1+ (Negative); URINE KETONES NEGATIVE (Negative); URINE LEUKOCYTES-REFLEX TRACE (Negative); URINE PROTEIN (DIPSTICK) TRACE (Negative); URINE SPECIFIC GRAVITY 1.015 (1.005-1.035); URINE UROBILINOGEN 0.2 E.U./dl (0.2-1.0)
[2020-12-26 10:45] LABS: URINE NITRITE-REFLEX POSITIVE (Negative)
[2020-12-26 10:53] LABS: CASTS None Seen /LPF (None Seen); SQUAMOUS 0-3 Few /LPF (0-3)
[2020-12-26 10:54] LABS: BACTERIA-REFLEX >30 Many /HPF (None Seen); CRYSTALS None Seen /LPF (None Seen); URINE RBC None Seen /HPF (NONE SEEN); URINE WBC-REFLEX 6-15 Few /HPF (0-5)
[2020-12-26 12:06] VITALS: BP 172/72
[2020-12-26 12:38] VITALS: BP 160/82
[2020-12-26 12:58] VITALS: BP 150/77
--- NOTE | 2020-12-26 14:12 | NUR ---
ASSESSMENT: CM REVIEWED CHART AND SPOKE WITH PATIENT. PT WAS ADMITTED DUE TO ABDOMINAL PAIN AND IS TO HAVE AN EGD IN THE AM. PT REPORTS THAT SHE LIVES IN [facility] IN [place], [place]. PT REPORTS THAT SHE LIVES WITH HER . PT REPORTS NO STEPS TO ENTER THE HOME OR ONCE INSIDE. PT STATES SHE NORMALLY AMBULATES INDEPENDENTLY BUT DOES HAVE A WALKER AT HOME TO USE FOR LONG DISTANCES. PT REPORTS HAVING A GRAB BAR AND SHOWER CHAIR. PT REPORTS SHE HAD HH YEARS AGO AFTER A SURGERY BUT UNSURE THE AGENCY. PT REPORTS SHE HAS NOT BEEN TO A SNF IN THE PAST. CM DISCUSSED ROLE. PT DOES NOT ANTICIPATE HAVING ANY NEEDS FROM CM. CM WILL CONTINUE TO FOLLOW TO ASSIST NEEDED.
--- NOTE | 2020-12-26 15:10 | NUR ---
ASSUMED PT CARE AT 1300 FROM ED. PT IS ALERT & ORIENTED X4. PT HAS IV SITE ON R AC. PT IS ACCUCHECK ACHS. PT IS ON ROOM AIR. PT USES BEDPAN. DID COVID SWAB AND AWAITING FOR THE RESULT. PT SIGNED INFORMED CONSENT FOR EGD TOMORROW. PT C/O OF PAIN AND GIVEN PAIN MEDICATION PER REQUEST. INFORMED DR THAT PT IS ADMITTED AND CURRENTLY IN THE ROOM. FINISHED ADMISSION AND MEDICATION RECONCILIATION. DR AWARE AND AWAITING FOR DR ORDERS. PT TOLERATED LUNCH THIS AFTERNOON. PT ON THE BED, BED ON THE LOWEST POSITION, SIDE RAILS UP, CALL LIGHT WITHIN REACH. WILL CONTINUE TO MONITOR PT. FOLLOW POC.
[2020-12-26 16:00] VITALS: BP 135/67
[2020-12-26 19:53] VITALS: BP 131/61
[2020-12-27 05:06] VITALS: BP 141/77
--- NOTE | 2020-12-27 06:22 | NUR ---
RECEIVED CARE OF THIS PATIENT AT 1900. PATIENT ALERT AND ORIENTED X4. UP WITH SBA. C/O PAIN, MED GIVEN. NPO SINCE MN FOR EGD TODAY. ACCUCHECK WAS 185, 3 UNITS LISPRO INSULIN GIVEN. SLEPT MOST OF NIGHT.
[2020-12-27 07:28] VITALS: BP 158/82
--- NOTE | 2020-12-27 10:23 | NUR ---
ASSUMED CZRE OF PT AT 0700 THIS MORNING. PT WAS ADMITTED FOR ABD PAIN AND DISCOMFORT ALONG WITH MALNUTRITION. PT IS A/OX4 THIS MORNING WITH EYES PERRLA. SKIN IS INTACT WITH NO TENTING, W/D/ATR. LUNGS ARE CLEAR WITH A NONPRODUCTIVE COUGH. PT STATED IT'S FROM ALLERGIES. ABD SOFT NONTENDER, ACTIVE BOWEL SOUNDS. ASSESSMENTS OTHERWISE UNREMARKABLE. PT IS TO HAVE AND EGD PERFORMED THIS MORNING AROUND 1100HRS. PT HAS BEEN NPO SINCE MIDNIGHT. CALL LIGHT AND OTHER NEEDS ARE WITHIN REACH.
--- NOTE | 2020-12-27 10:53 | NUR ---
ON-GOING ASSESSMENT: CM REVIEWED CHART. PT IS TO HAVE HER EGD TODAY. CM WILL CONTINUE TO FOLLOW TO ASIST NEEDED.
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
[2020-12-27 16:19] VITALS: BP 155/88
[2020-12-27 19:01] VITALS: BP 102/68
[2020-12-27 21:04] LABS: CHOLESTEROL 232 mg/dL (<200); HDL CHOLESTEROL 69 mg/dL (>40); LDL CHOLESTEROL 138 mg/dL (<100); TC:HDL 3.4 Ratio (Not establshd); TRIGLYCERIDE 126 mg/dL (<150); VLDL 25 mg/dL (<40)
--- NOTE | 2020-12-28 00:40 | NUR ---
ASSESSMENT COMPLTED. PT DENIES ANY ABDOMINAL PAIN. SWALLOWING WITH NO DIFFICULTIES. NO DIARHOEA/NAUSEA OR VOMITING. AFEBRILE. SHE IS IN APLEASNT MOOD. NPO AFTER MIDNOC FOR EGD TOMORROW.CALLS APPROPRIATELY,
[2020-12-28 03:40] VITALS: BP 99/64
[2020-12-28 07:20] VITALS: BP 140/86
[2020-12-28 08:19] VITALS: BP 140/86
--- NOTE | 2020-12-28 10:14 | NUR ---
ASSUMED PT CARE AROUND 0700. PT ALERT X ORIENTED X4. ON ROOM AIR. IV RT AC/ SLAINE LOCKED. 1 X PERSON ASST. TREMORES ON HANDS. NO C/O NAUSEA/VOMITING. NO EDEMA. NPO SINCE MIDNIGHT FOR EGD. FALL PRECAUTION IN PLACE. CALL LIGHT IN REACH. WILL CALL APPROPRIATELY. WILL CONT TO MONITOR. ACCU CHECKS. BLD SUGAR 218, INSULIN AND PO BP MEDS NOT GIVEN PATIENT IS NPO.
--- NOTE | 2020-12-28 10:45 | 2DMMODE ---
[facility] [place] [address] 2 D/M-MODE ECHOCARDIOGRAM Name: AFSHIN FERGUSON Room #: 435-P ADM IN M.R.#: [id number] Admission: 12/26/20 Attend Phys: Cameron Duncan MD Discharge: Date of : 46 Report #: [id number] THIS REPORT FOR: cc: Cameron Duncan MD, Neal A. MD Park, Jin S. MD ~ APPROVED REPORT Study performed: 12/28/2020 09:19:34 EXAM: Comprehensive 2D, Doppler, and color-flow Echocardiogram Patient Location: Bedside Room #: [facility] Status: routine BSA: 1.66 HR: 80 bpm BP: 140/56 mmHg Rhythm: NSR Other Information Study Quality: Adequate Indications Pre-Op clearance. Hx: CABG, PCI, CHF, CM, HTN, HLP, DM. 2D Dimensions RVDd: 32.29 mm IVSd: 9.97 (7-11mm) LVOT Diam: 18.59 (18-24mm) LVDd: 33.59 mm PWd: 8.90 (7-11mm) Ascending Ao: 25.61 (22-36mm) LVDs: 21.86 (25-40mm) Left Atrium: 27.70 (27-40mm) Aortic Root: 28.64 mm Volumes Left Atrial Volume (Systole) Single Plane 4CH: 32.75 mL Single Plane 2CH: 29.30 mL LA ESV Index: 21.00 mL/m2 Aortic Valve AoV Peak Chapin.: 1.07 m/s AO Peak Gr.: 4.57 mmHg LVOT Max P.35 mmHg LVOT Max V: 0.92 m/s [facility] [address] [place] [address] 2 D/M-MODE ECHOCARDIOGRAM Name: AFSHIN FERGUSON Room #: 435-P [facility] IN [facility]#: [id number] Admission: 12/26/20 Attend Phys: Cameron Duncan, Discharge: Date of : 46 Report #: [id number] ALTAGRACIA Vmax: 2.32 cm2 Mitral Valve E/A Ratio: 0.8 MV Decel. Time: 171.97 ms MV E Max Chapin.: 1.15 m/s MV A Chapin.: 1.42 m/s MV PHT: 49.87 ms IVRT: 103.81 ms Pulmonary Valve PV Peak Chapin.: 1.05 m/s PV Peak Gr.: 4.37 mmHg Tricuspid Valve TR Peak Chapin.: 2.93 m/s RAP Estimate: 5.00 mmHg TR Peak Gr.: 34.31 mmHg PA Pressure: 39.00 mmHg Left Ventricle The left ventricle is normal size. There is normal LV segmental wall motion. Basal septal hypertrophy is present. Left ventricular systolic function is normal. LVEF is 60-65%. Mild diastolic dysfunction is present. Right Ventricle The right ventricle is normal size. The right ventricular systolic function is normal. Atria The left atrium size is normal. The right atrium size is normal. Aortic Valve The aortic valve is normal in structure. No aortic regurgitation is present. There is no aortic valvular stenosis. Mitral Valve Mitral valve leaflets are mildly calcified. Moderate mitral annular calcification. Mild mitral regurgitation. No evidence of mitral valve stenosis. Tricuspid Valve The tricuspid valve is normal in structure. Mild tricuspid regurgitation. Estimated PAP is 40mmHg. Pulmonic Valve [facility] [address] [place] [address] 2 D/M-MODE ECHOCARDIOGRAM Name: AFSHIN FERGUSON Room #: 435-P [facility] IN .R.#: [id number] Admission: 12/26/20 Attend Phys: Cameron Duncan, Discharge: Date of : 46 Report #: [id number] The pulmonary valve is normal in structure. Trace pulmonic regurgitation. Great Vessels The aortic root is normal in size. The ascending aorta is normal in size. IVC is normal in size and collapses >50% with inspiration. Pericardium There is no pericardial effusion. <Conclusion> The left ventricle is normal size. Left ventricular systolic function is normal. Mild diastolic dysfunction is present. The right ventricle is normal size. The left atrium size is normal. The aortic valve is normal in structure. Moderate mitral annular calcification. Mild mitral regurgitation. Mild tricuspid regurgitation. Estimated PAP is 40mmHg. <ELECTRONICALLY SIGNED> By: Tylor Smiley MD 12/28/20 1045 1045 1045 Tylor Smiley MD /INF
--- NOTE | 2020-12-28 12:45 | NUR ---
on-going assessment: CM REVIEWED CHART. PLANS ARE FOR PATIENT TO HAVE EGD TODAY NOW THAT SHE HAS RECEIVED CARDIAC CLEARANCE TO PROCEED. CM WILL CONTINUE TO FOLLOW NEEDED. PT REPORTS LIKELY NO NEEDS FROM CM AT DISCHARGE.
[2020-12-28 16:20] VITALS: BP 111/57
[2020-12-28 18:55] VITALS: BP 91/40
[2020-12-28 23:58] VITALS: BP 118/60
--- NOTE | 2020-12-29 02:12 | NUR ---
PT IS A/O X4 AND IS UP WITH ASSISTANCE. PLEASANT AND COOPERATIVE. HS BS ELEVATED. REFUSED HALF OF HS SCHEDULED INSULIN. DENIES C/O PAIN OR DISCOMFORT. BP LOW UPON START OF SHIFT. RECHECKED AND IS WNL. AFEBRILE. NO C/O NAUSEA OR VOMITTING. NO C/O ABDOMINAL PAIN. FALL PRECAUTIONS IN PLACE, CALL LIGHT IS WITHIN REACH. PT IS PROGRESSING TOWARDS PLAN OF CARE DC GOALS AND IS HOPEFUL TO BE GOING HOME IN THE AM.
[2020-12-29 03:56] VITALS: BP 121/66
[2020-12-29] MEDS ORDERED: CEFDINIR300 MG PO (07:54)
[2020-12-29] MEDS ORDERED: NYSTATIN100000 UNI SW&SWALLOW (07:54)
[2020-12-29 08:01] VITALS: BP 121/66
--- NOTE | 2020-12-29 08:17 | NUR ---
on-going assessment: CM REVIEWED CHART AND SPOKE WITH PATIENT. PT HAS ORDERS TO DISCHARGE HOME TODAY WITH NO NEEDS. PT REPORTS HER WILL COME PICK HER UP. PT STATES SHE HAS NO NEEDS FROM CM. CASE CLOSED.
[2020-12-29 08:36] VITALS: BP 141/69
[2020-12-29] MEDS ORDERED: CRESTOR20 MG PO (09:52)
--- NOTE | 2020-12-29 10:11 | NUR ---
ASSUMED CARE OF PT AT 0700 THIS MORNING. PT IS TO BE DISCHARGED THIS MORNING. PT WAS A/OX4, SKIN INTACT, NO TENTING. LUNGS ARE CLEAR ALL BURT. CR<3SEC X4, ABD SOFT NONTENDER WITH ACTIVE BOWEL SOUNDS, TREMORS IN BOTH HNDS AND SLIGHTLY IN LOWER EXTREMETIES. ASSESSMENTS OTHERWISE UNREMARKABLE. IV WAS REMOVED AND DISCHARGE PAPERS AND EDUCATION GIVEN AND SIGNED. PT WAS TRANSPORTED TO FRONT DOORS AND PICKED UP BY .
--- NOTE | 2021-01-02 12:07 | PATH ---
[facility] [place] [address] PATHOLOGY RPT PROCEDURE Name: JENNIFER FERGUSON Room #: 435-P DIS IN M.R.#: [id number] Admission: 12/26/20 Date of : 46 Discharge: 12/29/20 Report #: [id number] Path Case #: [id number] L[facility] Accession Number: [id number] . 01 Material submitted: . esophagus - ESOPHAGEAL BX . 01 Clinical history: . R/O ARIADNE DYSPHAGIA, POOR APPETITE . 02 Diagnosis: Squamous mucosa, esophageal rule out Ariadne, endoscopic biopsy: - Moderate active esophagitis with fungal hyphal elements present compatible with the provided history of Ariadne esophagitis. - Negative for intestinal metaplasia or dysplasia. (IUV:marvel; 01/01/2021) QMS 01/01/2021 1608 Local . 02 Comment: A properly controlled GMS fungal special stain is performed on block A1 and it shows fungal hyphal elements present within the squamous epithelial fragments examined. (IUV:marvel; 01/01/2021) . 02 Electronically signed: . Karma Lala MD, Pathologist NPI- [id number] . 01 Gross description: . Received in formalin labeled "Jennifer Ferguson, esophageal biopsy rule out Ariadne " are multiple frazier-brown soft tissue fragments measuring in aggregate 0.9 x 0.3 x 0.2 cm. The specimen is submitted entirely in A1. ([facility]; 12/29/2020) GZA/GZA 12/29/2020 1343 Local . 02 Pathologist provided ICD-10: K20.90 . 02 CPT . 316996, [id number] Specimen Comment: A courtesy copy of this report has been sent to [phone] Specimen Comment: [id number] Specimen Comment: Report sent to / DR MASON Performed at: [address] [place] [address] PATHOLOGY RPT PROCEDURE Name: JENNIFER FERGUSON Key Room #: [facility] IN .R.#: [id number] Admission: 12/26/20 Date of : 46 Discharge: 12/29/20 Report #: [id number] Path Case #: [id number] [address] [address], [place], [place] [id number] MD Tavo Kennedy MD Phone: [phone] Performed at: [address] [id number] MD Karma Lala MD Phone: [phone]
== END 2020-12-29 11:30 | disposition home or self-care (01) | DRG 369 ==
LOC: ER 08:38 → 4S 11:23 → EROBS 11:23 → 4S 12:42
PROVIDERS: Emergency Medicine; ADMIT Family Medicine; ATTEND Family Medicine
DX: B37.81 Candidal esophagitis (principal); N39.0 Urinary tract infection, site not specified; I42.9 Cardiomyopathy, unspecified; Z20.822 Contact with and (suspected) exposure to COVID-19; E11.9 Type 2 diabetes mellitus without complications; Z96.643 Presence of artificial hip joint, bilateral; E78.00 Pure hypercholesterolemia, unspecified; K21.9 Gastro-esophageal reflux disease without esophagitis; I50.9 Heart failure, unspecified; I25.10 Atherosclerotic heart disease of native coronary artery without angina pectoris; I25.5 Ischemic cardiomyopathy; R62.7 Adult failure to thrive; J45.909 Unspecified asthma, uncomplicated; R13.10 Dysphagia, unspecified; I11.0 Hypertensive heart disease with heart failure; E78.5 Hyperlipidemia, unspecified; K44.9 Diaphragmatic hernia without obstruction or gangrene; Z79.4 Long term (current) use of insulin; I25.2 Old myocardial infarction; Z90.49 Acquired absence of other specified parts of digestive tract; Z95.5 Presence of coronary angioplasty implant and graft; Z98.42 Cataract extraction status, left eye; Z98.41 Cataract extraction status, right eye; Z89.421 Acquired absence of other right toe(s); Z95.1 Presence of aortocoronary bypass graft; Z88.0 Allergy status to penicillin; Z88.8 Allergy status to other drugs, medicaments and biological substances; Z68.22 Body mass index [BMI] 22.0-22.9, adult; Z86.010 Personal history of colon polyps; Z82.49 Family history of ischemic heart disease and other diseases of the circulatory system
CPT/HCPCS: 10195; 62110; 62900; 70005

== ENCOUNTER 2021-07-04 08:30 | Inpatient (IN) | payer OTHER ==
[~2021-07-04] VITALS: Ht 162.6 cm; Wt 57.2 kg
[~2021-07-04 08:30] MED LIST changes: +ALBUTEROL2.5 MG/31 INH; +BENTYL 10 MG CA10 MG PO; +CLOTRIMAZOLE-BE15 GM TOP; +CRESTOR20 MG PO; +FERROUS GLUCON324 M2 PO; +NEURONTIN 300M300 M2 PO; +NYSTATIN100000 UNI SW&SWALLOW; +PNV 29-1 TABLE1 EACH PO; +PROZAC20 M1 PO; +VITAMIN C100 MG PO; +ZINC50 M3 PO
[2021-07-04 08:31] VITALS: BP 87/50
[2021-07-04 09:04] LABS: HEMOGLOBIN 10.9 gm/dL (12.0-15.0)
[2021-07-04 09:06] LABS: HEMATOCRIT 33.9 % (37.0-47.0); MCH 30.6 pg (26.0-34.0); MCHC 32.2 g/dL (28.0-37.0); MCV 95.2 fL (80.0-100.0); PLATELET COUNT 262 thou/uL (150-400); RBC 3.56 mil/uL (4.20-5.00); RDW 14.5 % (10.5-14.5); WBC 4.6 thou/uL (4.0-11.0)
[2021-07-04 09:15] LABS: CALCIUM 8.1 mg/dL (8.5-10.1); CREATININE 1.3 mg/dL (0.6-1.0); POTASSIUM 4.1 mmol/L (3.5-5.1)
[2021-07-04 09:26] LABS: ALBUMIN 2.9 g/dL (3.4-5.0); TOTAL BILIRUBIN 0.4 mg/dL (0.2-1.0)
[2021-07-04 10:47] LABS: ABSOLUTE NEUTROPHILS 1.9 thou/uL (1.4-8.2)
[2021-07-04 10:49] LABS: ATYPICAL LYMPHS 3 %
[2021-07-04 10:50] LABS: ANISOCYTOSIS 1+; OVALOCYTES FEW
[2021-07-04 14:55] VITALS: BP 143/71
[2021-07-04 15:20] VITALS: BP 132/73
--- NOTE | 2021-07-04 15:44 | EKG ---
[address] [place] [address] ELECTROCARDIOGRAM REPORT Name: AFSHIN FERGUSON Room #: 434-P ADM IN M.R.#: [id number] Admission: 07/04/21 Attend Phys: Cameron Duncan MD Discharge: Date of : 46 Report #: [id number] [facility] ED Test Date: 2021-07-04 Test Time: 09:21:13 Pat Name: AFSHIN FERGUSON Department: Room: 434 Gender: F Log Inspector: : 1950 Requested By: Lion Chance Order Number: [id number] MD: Jesus Ruano Measurements Intervals [place] Rate: 82 P: 64 KS: 231 QRS: 45 QRSD: 90 T: 93 QT: 398 QTc: 465 Interpretive Statements Sinus rhythm Prolonged KS interval Low voltage, precordial leads Probable anteroseptal infarct, old Nonspecific T abnormalities, lateral leads Baseline wander in lead(s) V1 Compared to ECG 12/26/2020 08:44:36 First degree AV block now present Low QRS voltage now present T-wave abnormality now present Myocardial infarct finding still present Electronically Signed On 07-04-2021 15:44:10 TEMPERATURE REGULATOR PYROMETER by Jesus Ruano [email or web address] <ELECTRONICALLY SIGNED> By: Jesus Ruano MD, FACC 07/04/21 1544 0 0 Jesus Ruano MD, FACC /EPI
--- NOTE | 2021-07-04 17:03 | NUR ---
[age] YEAR OLD FEMALE ADMITTED TO [address] [place] [address] 434. PT WAS BROUGHT IN TO THE ER PER EMS DUE TO C/O ABD PAIN. PT ALERT AND ORIENTED TIMES FOUR. PT C/O PAIN. PT AT BEDSIDE DURING ADMISSION ASSESSMET. WILL CONTINUE TO MONITOR.
[2021-07-04 19:22] VITALS: BP 110/91
--- NOTE | 2021-07-05 03:12 | NUR ---
ASSESSED AT START OF SHIFT. PT RESTING IN BED. IV INTACT AND FLUIDS INFUSING. PT C/O ABD PAIN AND IV MORPHINE GIVEN. CRTICAL GRAM POSTIVE RODS ON BLOOD CULTURES DR MASON NOTIFIED. NEW IV 22G RESTARTED IN RT FOREARM. FALL PREC IN PLACE AND CALL LIGHT AT REACH WILL CONT TO MONITOR.
[2021-07-05 04:56] VITALS: BP 120/59
[2021-07-05 07:00] VITALS: BP 122/63
[2021-07-05 09:01] LABS: URINE BILIRUBIN NEGATIVE (Negative); URINE BLOOD 1+ (Negative); URINE CLARITY CLEAR; URINE COLOR YELLOW; URINE GLUCOSE-RANDOM* 3+ (Negative); URINE KETONES 1+ (Negative); URINE LEUKOCYTES-REFLEX NEGATIVE (Negative); URINE NITRITE-REFLEX NEGATIVE (Negative); URINE PROTEIN (DIPSTICK) NEGATIVE (Negative); URINE SPECIFIC GRAVITY 1.025 (1.005-1.035); URINE UROBILINOGEN 0.2 E.U./dl (0.2-1.0)
[2021-07-05 09:53] LABS: CASTS None Seen /LPF (None Seen); CRYSTALS None Seen /LPF (None Seen); SQUAMOUS 4-10 Moderate /LPF (0-3)
[2021-07-05 09:54] LABS: BACTERIA-REFLEX 1-9 Few /HPF (None Seen); URINE RBC 3-10 Few /HPF (NONE SEEN); URINE WBC-REFLEX 6-15 Few /HPF (0-5)
--- NOTE | 2021-07-05 10:01 | NUR ---
ASSUMED PT CARE THIS AM. PT IS ALERT & ORIENTED X4. PT HAS IV SITE ON [facility] RUNNING NS @100ML/HR AND ANTIBIOTICS. PT IS UP WITH ASSIST X1 TO THE BATHROOM. PT IS ACCUCHECK ACHS. PT IS ON TELE MONITOR ON. PT TOLERATED DIET THIS AM. SENT UA CULTURE THIS AM. PT AT THE BEDSIDE. WILL CONTINUE TO MONITOR PT. FOLLOW POC.
[2021-07-05 16:00] VITALS: BP 112/52
--- NOTE | 2021-07-05 16:22 | NUR ---
Chart reviewed and case discussed with the unit Rn. Pt resting this afternoon. Up with SBA to bathroom and some anxiety this morning. Pt is being treated for colitis/uti/pos blood cultures. She is tolerating clear liquids and hoping to adv diet tomorrow. The pt lives in an apt with "her " sig other of many years Al. They have no steps and she is normally indep with gait and adl's. She does have a rwalker to use for longer distances when outside the home. Her pcp is Dr. Duncan. She is familiar with HH from last year. She was here in December this year and dc'd to home with no dc planning needs. Will follow along. Nursing to ask for therapy evals if they feel pt is getting weaker or fall risk. Al has been here visiting today.
[2021-07-05 21:31] VITALS: BP 98/52
--- NOTE | 2021-07-06 03:52 | NUR ---
ASSUMED CARE OF PT AT 1900. BEDSIDE REPORT RECEIVED. JOÃO ASSESSMENT COMPLETE. VSS AFEBRILE. PT C/O ABDOMINAL AND RECTAL PAIN. PAIN MEDS GIVEN ACCORDINGLY, MEDS GIVEN PER MAR. L HAND PIV PATENT, SECURE. IVF INFUSING PER MAR. ALL NEEDS MET CALL LIGHT IN REACH
--- NOTE | 2021-07-06 04:54 | NUR ---
I AGREE WITH THE ASSESSMENT AND CHARTING OF NURSE HERNANDES FOR THIS PT
[2021-07-06 06:42] LABS: HEMATOCRIT 30.7 % (37.0-47.0); HEMOGLOBIN 9.8 gm/dL (12.0-15.0); MCH 31.1 pg (26.0-34.0); MCHC 31.9 g/dL (28.0-37.0); MCV 97.2 fL (80.0-100.0); RBC 3.16 mil/uL (4.20-5.00); RDW 14.9 % (10.5-14.5)
[2021-07-06 06:52] LABS: CALCIUM 7.7 mg/dL (8.5-10.1); POTASSIUM 4.8 mmol/L (3.5-5.1)
[2021-07-06 07:06] VITALS: BP 95/55
--- NOTE | 2021-07-06 08:11 | NUR ---
this nurse went to hang Cipro per order, noticied that Zosyn that was started at 0430 was not hooked up to line. restarted zosyn and will run Cipro concurrently as there is no drug interactions noted.
--- NOTE | 2021-07-06 13:42 | NUR ---
at 0825 Maryjane from lab called to say that the positive blood cultures are gram positive; not rods, but cocci. Dr. Duncan notified of change, no change in abx.
--- NOTE | 2021-07-06 15:25 | NUR ---
Discussed with attending physician. GI consult. Had some emesis this am. Weekend discharge, home no needs.
[2021-07-06 15:29] VITALS: BP 110/52
[2021-07-06 20:23] VITALS: BP 139/69
--- NOTE | 2021-07-07 02:15 | NUR ---
ASSUMED CARE OF PT AT 1900. BEDSIDE REPORT RECIEVED. JOÃO ASSESSMENT COMPLETE. PT C/O 01/25 ABDOMINAL PAIN. DENIES NAUSEA OR VOMITTING. MEDS GIVEN PER OCT, PAIN MEDS GIVEN ACCORDINGLY. L PIV CDI, PATENT, IVF AND ABTS RUNNING PER OCT. PT UP C SBA TO BATHROOM. SLEEPING COMFORTABLY. HOURLY ROUNDING CONTINUING. CALL LIGHT IN REACH
[2021-07-07 07:27] VITALS: BP 129/57
--- NOTE | 2021-07-07 10:07 | NUR ---
ASSUMED PT CARE THIS AM. PT IS ALERT & ORIENTED X4. PT HAS IV SITE ON L HAND RUNNING NS @100ML/HR. PT IS UP WITH ASSIST X1 TO THE BATHROOM. PT IS ACCUCHECK ACHS. PT IS ON TELE MONITOR ON. PT C/O OF CONSTIPATION AND GIVEN BISACODYL PER DR ORDERED. PT TOLERATED DIET AND MEDICATION WELL. WILL CONTINUE TO MONITOR PT. FOLLOW POC.
[2021-07-07 16:27] VITALS: BP 125/72
[2021-07-07] MEDS ORDERED: DICYCLOMINE HCL10 MG PO (19:09)
[2021-07-07 20:05] VITALS: BP 155/81
--- NOTE | 2021-07-07 22:47 | NUR ---
ASSUMED PT CRAE AT 1900.PT DENIED PAIN SO FAR.PT HAS HAD MULTIPLE LOOSE STOOLS SHIFT SHIFT CHANGE DUE TO HER COLITIS.HOME MED RESTARTED PER PT'S REQUEST TO HELP WITH LOOSE STOOL.PT CONT ON IVF AND IV ABX ORDERED.PT ABLE TO MAKE HER NEEDS KNOWN.ENGINEER AND GEOLOGIST ON DUTY ROUNDED ON PT AT HS.CALL LIGHT WITHIN REACH.
[2021-07-08 08:00] VITALS: BP 133/68
--- NOTE | 2021-07-08 09:54 | NUR ---
ASSUMED PT CARE THIS AM. NO C/O OF DIARRHEA THIS AM. REMOVED IV THIS AM DUE TO INFILTRATED AND CALLED IV TEAM TO PLACED A NEW IV. PT HAS IV SITE ON LFA. PT IS ON ROOM AIR. ADVANCED DIET THIS LUNCH. PT IS ACCUCHECK ACHS. CALLED AND LEFT VOICEMESSAGE FOR CONSULT THIS AM. PT DENIES PAIN, NAUSEA AND VOMITING. WILL CONTINUE TO MONITOR PT. FOLLOW POC.
[2021-07-08 19:09] VITALS: BP 128/53
--- NOTE | 2021-07-09 03:39 | NUR ---
ASSUMED CARE OF PT AT 1900. BEDSIDE REPORT RECIEVED. JOÃO ASSESSMENT COMPLETE. PT C/O ABDOMINAL PAIN. DENIES NAUSEA, VOMITTING OR DIARRHEA. MEDS GIVEN PER MAR, PAIN MEDS GIVEN ACCORDINGLY. ON ROOM AIR UP C SBA TO BATHROOM. INDEPENDENT BED MOBILITY. IVF INFUSING PER MAR. HOURLY ROUNDING CONTINUING. CALL LIGHT IN REACH
[2021-07-09 04:22] VITALS: BP 137/74
[2021-07-09 08:11] VITALS: BP 145/83
[2021-07-09 08:42] LABS: HEMATOCRIT 34.1 % (37.0-47.0); MCHC 32.1 g/dL (28.0-37.0); MCV 96.3 fL (80.0-100.0); RBC 3.54 mil/uL (4.20-5.00); RDW 14.8 % (10.5-14.5); WBC 6.9 thou/uL (4.0-11.0)
[2021-07-09 08:49] LABS: CALCIUM 8.1 mg/dL (8.5-10.1); POTASSIUM 3.8 mmol/L (3.5-5.1)
--- NOTE | 2021-07-09 09:13 | NUR ---
PT ASSESSED AT START OF SHIFT. DR. MASON IN EARLY TO SEE PT. STATED POSSIBLE DC THIS AFTERNOON. PT CALLED OUT C/O FEELING SOA. BREATH SOUNDS CLEAR. O2 SAT 100% ON ROOM AIR. HX OF ASTHMA AND PT STATES SHE USES AEROSOL PRN AT HOME. DR. MASON NOTIFIED AND NEBULIZER ORDERED. TECH IN TO DO ECHO. RT GIVEN TREATMENT AND PT STATING SHE'S FEELING MUCH BETTER NOW.
[2021-07-09] MEDS ORDERED: PRINCIPEN500 MG PO (10:53)
--- NOTE | 2021-07-09 11:45 | 2DMMODE ---
[address] [address] 2 D/M-MODE ECHOCARDIOGRAM Name: AFSHIN FERGUSON Room #: 434-P ADM IN M.R.#: [id number] Admission: 07/04/21 Attend Phys: Cameron Duncan MD Discharge: Date of : 46 Report #: [id number] THIS REPORT FOR: cc: Cameron Duncan MD, Neal A. MD Lammoglia, Francisco J. MD ~ APPROVED REPORT Study performed: 07/09/2021 08:53:15 EXAM: Comprehensive 2D, Doppler, and color-flow Echocardiogram Patient Location: Bedside Room #: 434 Status: routine BSA: 1.61 HR: 86 bpm BP: 145/83 mmHg Rhythm: NSR Other Information Study Quality: Good Indications Diabetes Dyspnea Hypertension/HDD Bacteremia 2D Dimensions IVC: 15.00 mm Volumes Left Atrial Volume (Systole) LA ESV Index: 35.00 mL/m2 Tricuspid Valve PA Pressure: 61.00 mmHg Left Ventricle The left ventricle is normal size. There is normal LV segmental wall motion. There is normal left ventricular wall thickness. The left ventricular systolic function is normal. The left ventricular ejection fraction is within the normal range. LVEF is 55-60%. Grade I - abnormal relaxation pattern. [address] [address] 2 D/M-MODE ECHOCARDIOGRAM Name: AFSHIN FERGUSON Room #: 434-P ADM IN M.R.#: [id number] Admission: 07/04/21 Attend Phys: Cameron Duncan, Discharge: Date of : 46 Report #: [id number] Right Ventricle The right ventricle is normal size. The right ventricular systolic function is normal. Atria Left atrium is dilated. Right atrium is at the upper limits of normal. Aortic Valve The aortic valve is normal in structure. No aortic regurgitation is present. There is no aortic valvular stenosis. Mitral Valve The mitral valve is normal in structure. Mild mitral regurgitation. No evidence of mitral valve stenosis. Tricuspid Valve The tricuspid valve is normal in structure. There is mild tricuspid regurgitation. Estimated PAP 61 mmHg. There is moderate pulmonary hypertension. Pulmonic Valve The pulmonary valve is normal in structure. There is no pulmonic valvular regurgitation. Great Vessels The aortic root is normal in size. IVC is normal in size and collapses <50% with inspiration. Pericardium There is no pericardial effusion. <Conclusion> The left ventricle is normal size. There is normal LV segmental wall motion. LVEF is 55-60%. The right ventricle is normal size. Left atrium is dilated. The aortic valve is normal in structure. The mitral valve is normal in structure. Mild mitral regurgitation. The tricuspid valve is normal in structure. There is mild tricuspid regurgitation. Estimated PAP 61 mmHg. There is moderate pulmonary hypertension. The pulmonary valve is normal in structure. [facility] [place] [address] 2 D/M-MODE ECHOCARDIOGRAM Name: AFSHIN FERGUSON Room #: 434-P ADM IN M.R.#: [id number] Admission: 07/04/21 Attend Phys: Cameron Duncan, Discharge: Date of : 46 Report #: [id number] The aortic root is normal in size. There is no pericardial effusion. <ELECTRONICALLY SIGNED> By: Naeem Sosa MD 07/09/21 1144 1144 1144 Naeem Sosa MD /INF
[2021-07-09] MEDS ORDERED: ALBUTEROL2.5 MG/0.5 INH (12:14)
[2021-07-09 12:54] VITALS: BP 148/76
[2021-07-09 15:39] VITALS: BP 148/76
--- NOTE | 2021-07-09 16:09 | NUR ---
PT CHANGED TO ORAL ANTIBIOTICS AND WILL F/U W/ DR. HILL FOR HER COLITIS. DISCHARGING AT THIS TIME PER W/C W/ ALL BELONGINGS.
--- NOTE | 2021-07-10 08:08 | HC ---
[facility] [place] [address] CONSULTATION Name: AFSHIN FERGUSON Room #: 434-[facility] IN ..#: [id number] Admission: 07/04/21 Attend Phys: Cameron Duncan MD Discharge: 07/09/21 Date of : 46 Report #: [id number] THIS REPORT FOR: cc: Cameron Duncan MD, Neal A. MD Barry, Joseph W. MD ~ DATE OF SERVICE: 07/09/2021 INFECTIOUS DISEASE CONSULTATION ATTENDING PHYSICIAN: Dr. Duncan. REASON FOR EVALUATION: Strep gallolyticus, formerly bovis septicemia. HISTORY OF PRESENT ILLNESS: Chart reviewed. The patient examined. This is a 71-year-old woman with fairly extensive medical history, has diabetes mellitus complicated by vasculopathy, cardiomyopathy, admitted through the Emergency Room with complaints of abdominal pain and loose stools on 07/04/2021, was noted to be hypotensive with blood pressure systolics in the 60s-70s, oxygen saturations in the 80s. She was treated with oxygen supplemental therapy, given fluid resuscitation. Evaluation in part included blood cultures, 1 out of 2 with growth of polymicrobial Strep bovis gallolyticus. Also, isolated was Bifidobacterium species from the anaerobic bottle, had been treated with piperacillin/tazobactam as well as ciprofloxacin. Clinically, has improved from that standpoint, however, she complains of a discomfort in her anterior chest. She states she gets dyspneic with short ambulating, short walks, has been known to have underlying reactive airway disease and does take bronchodilators with some benefit. She has had some underlying hyperglycemia as well. ALLERGIES: Initially listed to PENICILLIN and in more detail, described as a child of age roughly 5, had throat swelling; however, she has been tolerant of Zosyn and cephalosporins as well as she reports amoxicillin as well. ALSO, APPARENTLY ALLERGIC TO COMPAZINE AND TIZANIDINE. CURRENT MEDICATIONS: Include albuterol, loperamide, dicyclomine, pantoprazole, Zosyn, p.r.n. analgesics, sliding scale insulin. PAST MEDICAL HISTORY: Includes diabetes mellitus complicated by vasculopathy, has known coronary artery disease with previous myocardial infarction, CABG several years ago and has a cardiomyopathy, hypertension, hyperlipidemia, history of reflux, Ariadne esophagitis. Previous colonoscopy in 09/2019 without evidence of malignancy. Three polyps were biopsied, all of which had no evidence of high-grade dysplasia. She does have asthma and some reactive airway disease. SOCIAL HISTORY: Nonsmoker, no ethanol, [place] [address] CONSULTATION Name: AFSHIN FERGUSON Room #: 434-P [facility] IN M.R.#: [id number] Admission: 07/04/21 Attend Phys: Cameron Duncan MD Discharge: 07/09/21 Date of : 46 Report #: [id number] FAMILY HISTORY: Noncontributory. REVIEW OF SYSTEMS: Otherwise, unremarkable. PHYSICAL EXAMINATION: GENERAL: She is alert. She is in mild to moderate distress. She is anxious. Has intermittent cough. She appears pale and undernourished. VITAL SIGNS: Temperature 97.9, pulse 95, respirations 18, blood pressure 145/83. SKIN: Warm, dry, no rashes. HEENT: Normocephalic. Extraocular muscles intact. NECK: Supple. LUNGS: Minimal wheezes. Fair air movement. Generally clear. HEART: Regular. I do not appreciate a murmur. ABDOMEN: Mildly distended, soft, nontender. EXTREMITIES: No cyanosis. GENITOURINARY AND RECTAL: Deferred. LABORATORY DATA: CBC: White count 6.9, H and H 11.0 and 34.1, platelets of 232. Electrolytes: Sodium 141, potassium 3.8, chloride 107, bicarbonate is 19, anion gap of 15, BUN and creatinine 13 and 1.0, glucose of 369. Blood cultures described above with polymicrobial growth in 1 out of 2 Strep gallolyticus, formerly bovis as well as Bifidobacterium species. CT of the pelvis, question of colitis involving the descending and rectosigmoid. Chest x-ray, no acute process at time of admission. Path was reviewed from 12/2020. EGD showed active esophagitis with fungal elements compatible with Ariadne esophagitis. She had a colonoscopy in 09/2019 and had polyps, which were negative for high-grade dysplasia, did have some mild colitis at that point as well. ASSESSMENT AND PLAN: Streptococcus septicemia certainly is described in the chart that has been associated with gastrointestinal malignancy, has had recent visualization of the upper and lower tract. Certainly, there was evidence of colitis and may well explain the positive blood cultures as well. Echo is pending. There is no clinical evidence of endocarditis at this point. Discussed with Dr. Duncan. I think it is reasonable to transition to oral therapy. I could use ampicillin 500 p.o. t.i.d. MICs are noted to be quite low at less than 0.06 on the ampicillin, see her in followup. Did discuss issue with her breathing will reevaluate that as well. <ELECTRONICALLY SIGNED> By: Ketan Eason MD 07/10/21 0808 1040 1220 Ketan Eason MD /nt
== END 2021-07-09 16:17 | disposition home or self-care (01) | DRG 871 ==
LOC: ER 08:30 → EROBS 12:35 → 4S 12:35
PROVIDERS: Emergency Medicine; ADMIT Family Medicine; ATTEND Family Medicine
DX: A40.8 Other streptococcal sepsis (principal); N17.0 Acute kidney failure with tubular necrosis; N39.0 Urinary tract infection, site not specified; M31.9 Necrotizing vasculopathy, unspecified; K52.9 Noninfective gastroenteritis and colitis, unspecified; E11.59 Type 2 diabetes mellitus with other circulatory complications; D64.9 Anemia, unspecified; E78.00 Pure hypercholesterolemia, unspecified; K21.9 Gastro-esophageal reflux disease without esophagitis; Z96.643 Presence of artificial hip joint, bilateral; I50.9 Heart failure, unspecified; I25.5 Ischemic cardiomyopathy; Z20.822 Contact with and (suspected) exposure to COVID-19; I25.10 Atherosclerotic heart disease of native coronary artery without angina pectoris; E78.5 Hyperlipidemia, unspecified; J45.909 Unspecified asthma, uncomplicated; I11.0 Hypertensive heart disease with heart failure; Z86.010 Personal history of colon polyps; Z79.4 Long term (current) use of insulin; I25.2 Old myocardial infarction; Z95.1 Presence of aortocoronary bypass graft; Z90.49 Acquired absence of other specified parts of digestive tract; Z98.42 Cataract extraction status, left eye; Z98.41 Cataract extraction status, right eye; Z89.421 Acquired absence of other right toe(s); Z88.0 Allergy status to penicillin; Z88.8 Allergy status to other drugs, medicaments and biological substances; Z79.82 Long term (current) use of aspirin; Z79.899 Other long term (current) drug therapy
CPT/HCPCS: 10100

== ENCOUNTER 2021-07-18 09:52 | Observation (INO) | payer OTHER ==
[~2021-07-18] VITALS: Ht 165.1 cm; Wt 58.5 kg
[~2021-07-18 09:52] MED LIST changes: +ALBUTEROL2.5 MG/0.5 INH; +DICYCLOMINE HCL10 MG PO; +PRINCIPEN500 MG PO
[2021-07-18 10:20] VITALS: BP 180/105
[2021-07-18 10:34] LABS: ABSOLUTE NEUTROPHILS 4.5 thou/uL (1.4-8.2); BASOPHILS 1.4 % (0.0-2.0); EOSINOPHILS 3.8 % (0.0-3.0); HEMATOCRIT 32.7 % (37.0-47.0); HEMOGLOBIN 10.5 gm/dL (12.0-15.0); LYMPHOCYTES 16.9 % (24.0-44.0); MCH 30.7 pg (26.0-34.0); MCHC 32.2 g/dL (28.0-37.0); MCV 95.4 fL (80.0-100.0); MONOCYTES 6.4 % (1.0-8.0); PLATELET COUNT 336 thou/uL (150-400); POLYS 71.5 % (36.0-66.0); RBC 3.43 mil/uL (4.20-5.00); RDW 15.3 % (10.5-14.5); WBC 6.3 thou/uL (4.0-11.0)
[2021-07-18 10:46] LABS: AMYLASE 26 U/L (25-115); LIPASE 41 U/L (73-393)
[2021-07-18 10:48] LABS: CALCIUM 8.7 mg/dL (8.5-10.1); CREATININE 1.1 mg/dL (0.6-1.0)
[2021-07-18 10:50] LABS: ALBUMIN 3.3 g/dL (3.4-5.0); MAGNESIUM 2.2 mg/dL (1.8-2.4); TOTAL BILIRUBIN 0.4 mg/dL (0.2-1.0); TOTAL PROTEIN 7.1 g/dL (6.4-8.2)
[2021-07-18 13:07] LABS: URINE BILIRUBIN NEGATIVE (Negative); URINE BLOOD NEGATIVE (Negative); URINE CLARITY CLEAR; URINE COLOR YELLOW; URINE GLUCOSE-RANDOM* 3+ (Negative); URINE KETONES TRACE (Negative); URINE LEUKOCYTES-REFLEX NEGATIVE (Negative); URINE NITRITE-REFLEX NEGATIVE (Negative); URINE PROTEIN (DIPSTICK) NEGATIVE (Negative); URINE UROBILINOGEN 0.2 E.U./dl (0.2-1.0)
[2021-07-19 08:27] LABS: ABSOLUTE NEUTROPHILS 3.4 thou/uL (1.4-8.2); BASOPHILS 1.4 % (0.0-2.0); EOSINOPHILS 5.3 % (0.0-3.0); HEMATOCRIT 31.9 % (37.0-47.0); HEMOGLOBIN 10.1 gm/dL (12.0-15.0); LYMPHOCYTES 25.9 % (24.0-44.0); MCH 30.7 pg (26.0-34.0); MCHC 31.8 g/dL (28.0-37.0); MCV 96.8 fL (80.0-100.0); MONOCYTES 8.3 % (1.0-8.0); PLATELET COUNT 330 thou/uL (150-400); POLYS 59.1 % (36.0-66.0); RBC 3.29 mil/uL (4.20-5.00); RDW 15.6 % (10.5-14.5); WBC 5.7 thou/uL (4.0-11.0)
[2021-07-19 08:35] LABS: CALCIUM 8.2 mg/dL (8.5-10.1); CREATININE 0.9 mg/dL (0.6-1.0); MAGNESIUM 2.1 mg/dL (1.8-2.4); POTASSIUM 4.7 mmol/L (3.5-5.1)
--- NOTE | 2021-07-19 11:19 | HC ---
[facility] [place] [address] CONSULTATION Name: AFSHIN FERGUSON Room #: 170-15 ADM IN .R.#: [id number] Admission: 07/18/21 Attend Phys: Nunu Vu MD Discharge: Date of : 46 Report #: [id number] THIS REPORT FOR: cc: Cameron Duncan MD, Neal A. MD Barry, Joseph W. MD ~ DATE OF SERVICE: 07/18/2021 INFECTIOUS DISEASE CONSULTATION ATTENDING PHYSICIAN: Dr. Vu. REASON FOR EVALUATION: Abdominal pain with nausea, emesis. REASON FOR HOSPITALIZATION: With a confirmation of colitis and positive blood culture with polymicrobial growth including Streptococcus gallolyticus, formerly bovis. HISTORY OF PRESENT ILLNESS: Chart reviewed. The patient examined. 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 She states she was doing well and was asymptomatic. She went to sleep yesterday, and she woke up with complaints of lower abdominal pain, nausea and emesis. She notes she may have taken Augmentin on an empty stomach. It is not clear if she had any fevers or chills. Appetite has been generally pretty good. She did eat some leftover turkey as well, although her spouse stated that he has not become ill. At this point, she is significantly improved. She is no longer experiencing nausea. Initial laboratory was fairly unremarkable. She is anemic. Normal amylase and lipase. Electrolytes otherwise unremarkable. Blood sugar was elevated at 423, AST of 49. CT abdomen and pelvis noted improved inflammatory changes noted involving the descending and sigmoid colon. There was fluid-filled distended colon diffusely. Urinalysis was unremarkable. Procalcitonin less than 0.05. Repeat glucose earlier was 168. She was initiated on Cipro and Flagyl. ALLERGIES: LISTED TO PENICILLINS, although she had been taking Zosyn and Augmentin at home; PROCHLORPERAZINE, TIZANIDINE. CURRENT MEDICATIONS: Include atorvastatin, fluoxetine, Flagyl, Cipro, carvedilol, tramadol p.r.n., ondansetron as needed. PAST MEDICAL HISTORY: Diabetes mellitus complicated by vasculopathy; has known coronary artery disease with previous acute myocardial infarction and recurrent bypass grafting; recent diagnosis with Strep gallolyticus, previously noted as bovis; septicemia. She is due to have outpatient evaluation including colonoscopy. Did undergo echo testing, which showed [place] [address] CONSULTATION Name: AFSHIN FERGUSON Room #: [facility] ADM IN .R.#: [id number] Admission: 07/18/21 Attend Phys: Nunu Vu MD Discharge: Date of : 46 Report #: [id number] EF of 55-60%. SOCIAL AND FAMILY HISTORY: Available in chart. REVIEW OF SYSTEMS: Otherwise unremarkable with the exception of the above. Has been afebrile. Appetite has been satisfactory. No pulmonary related complaints. PHYSICAL EXAMINATION: GENERAL: She is alert, cooperative. She appears somewhat chronically ill, undernourished, mild distress. She is generally lucid. VITAL SIGNS: Temperature 98.6, pulse 73, respirations 12, blood pressure 114/59. SKIN: Warm, dry, no rashes. HEENT: Normocephalic. Extraocular muscles intact. NECK: Supple. LUNGS: Diminished, otherwise clear breath sounds. HEART: Regular. I do not appreciate a murmur. ABDOMEN: Mildly distended, slightly tender over the lower quadrants. There are no overt peritoneal signs. GENITOURINARY AND RECTAL: Deferred. LABORATORY DATA: As described above. Urinalysis unremarkable. CT abdomen and pelvis as noted previously. Electrolytes: Sodium 134, potassium 5.0, chloride 100, bicarbonate is 24, anion gap of 10, BUN and creatinine 16 and 1.1, glucose of 423. AST of 49, ALT of 31. Albumin 3.3, total protein 7.1, estimated GFR 49. Amylase 26, lipase 41. CBC: White count of 6.3, H and H 10.5 and 32.7, platelets of 336. Did have a fairly unremarkable differential. ASSESSMENT AND PLAN: Abdominal pain complicated by nausea and emesis and loose stool. The patient with a recent history of Strep bovis septicemia, had been on therapy with Augmentin. This seemingly is notably directly related to her current situation where there was an adverse drug effect to the Augmentin versus some gastroenteritis due to a food poisoning or another issue is not entirely clear. We will discontinue the Cipro and Flagyl at this point. Restart the Augmentin and see how she does tolerating it and plan to complete her course. She is still requiring outpatient evaluation including colonoscopy. Did discuss with the patient's spouse. <ELECTRONICALLY SIGNED> By: Ketan Eason MD 07/19/21 [id number] Ketan Eason MD /nt
[2021-07-19] MEDS ORDERED: HYDROCODON-ACE1 EAC7 PO (11:39)
[2021-07-19] MEDS ORDERED: AMOX TR-K CLV1 EAC4 PO (11:39)
[2021-07-19] MEDS ORDERED: PROBIOTIC1 EAC1 PO (11:39)
[2021-07-19 13:44] VITALS: BP 119/46
== END 2021-07-19 15:17 | disposition home or self-care (01) ==
LOC: ER 09:52 → EROBS 13:42
PROVIDERS: Emergency Medicine; Nurse Practitioner; ADMIT Hospitalist; ATTEND Hospitalist
DX: R11.2 Nausea with vomiting, unspecified (principal); Z20.822 Contact with and (suspected) exposure to COVID-19; R19.7 Diarrhea, unspecified; E11.9 Type 2 diabetes mellitus without complications; I11.0 Hypertensive heart disease with heart failure; I50.9 Heart failure, unspecified; E78.00 Pure hypercholesterolemia, unspecified; I25.2 Old myocardial infarction; J45.909 Unspecified asthma, uncomplicated; K21.9 Gastro-esophageal reflux disease without esophagitis; D64.9 Anemia, unspecified; I25.10 Atherosclerotic heart disease of native coronary artery without angina pectoris; Z95.5 Presence of coronary angioplasty implant and graft; Z79.899 Other long term (current) drug therapy